=== PATIENT | male | born 1965 | race Caucasian/White ===

== ENCOUNTER 2018-11-28 12:05 | Inpatient (IN) | payer OTHER ==
[~2018-11-28] VITALS: Ht 180.3 cm; Wt 127.0 kg
[2018-11-28] MEDS ORDERED: ONDANSETRON HCL INJ 2MG/ML 2ML 2 MG/ML VIAL IV STA (13:43)
[2018-11-28] MEDS ORDERED: SODIUM CHLORIDE 0.9% 1000ML 1,000 ML IV STA (13:43)
[2018-11-28] MEDS ORDERED: PANTOPRAZOLE 40 MG 10ML VIAL IV STA (13:43)
[2018-11-28] MEDS ORDERED: METRONIDAZOLE 500MG/NS 100ML 100 ML IV SCH (13:45)
[2018-11-28] MEDS ORDERED: PIPER-TAZ 3.375 GM 50 ML IV SCH (13:45)
[2018-11-28 15:06] LABS: BASOPHILS % 0.2 % (0.0-1.0); EOSINOPHILS # (AUTO) 0.2 (0.0-0.4); EOSINOPHILS % 1.4 % (0.0-6.0); HEMATOCRIT 50.6 % (38.2-49.6); HEMOGLOBIN 16.5 g/dL (14.0-18.0); LYMPHOCYTES # (AUTO) 1.7 (1.0-3.2); LYMPHOCYTES % 13.5 % (18.0-39.1); MEAN CORPUSCULAR HGB CONC 32.6 g/dL (31-35); MEAN CORPUSCULAR VOLUME 88.9 fL (81-99); MONOCYTES # (AUTO) 0.7 (0.2-0.8); MONOCYTES % 5.3 % (4.4-11.3); NEUTROPHILS # (AUTO) 10.1 (2.1-6.9); NEUTROPHILS % 79.2 % (38.7-80.0); PLATELET COUNT 263 x10e3/uL (140-360); RED BLOOD COUNT 5.69 x10e6/uL (4.3-5.7); RED CELL DISTRIBUTION WIDTH 13.2 % (11.7-14.4)
[2018-11-28 15:10] LABS: INR 1.04; PROTHROMBIN TIME 14.1 seconds (11.9-14.5)
[2018-11-28 15:11] LABS: PARTIAL THROMBOPLASTIN TIME 34.2 seconds (23.8-35.5)
--- NOTE | 2018-11-28 15:12 | Diagnostic Imaging Report ---
EXAMINATION: CHEST SINGLE (PORTABLE) INDICATION: Abdominal pain. COMPARISON: None FINDINGS: TUBES and LINES: None. LUNGS: Lungs are well inflated. Lungs are clear. There is no evidence of pneumonia or pulmonary edema. PLEURA: No pleural effusion or pneumothorax. HEART AND MEDIASTINUM: The cardiomediastinal silhouette is unremarkable. BONES AND SOFT TISSUES: No acute osseous lesion. Soft tissues are unremarkable. UPPER ABDOMEN: No free air under the diaphragm. IMPRESSION: No acute radiographic abnormality. Signed by: Dr. Senthil Akers MD on 11/28/2018 3:09 PM
[2018-11-28 15:18] LABS: ALANINE AMINOTRANSFERASE 13 IU/L (0-55); ALBUMIN/GLOBULIN RATIO 0.6 (0.8-2.0); ALKALINE PHOSPHATASE 72 IU/L (40-150); ANION GAP 11.6 mmol/L (8-16); BLOOD UREA NITROGEN 17 mg/dL (7-26); BUN/CREATININE RATIO 17 (6-25); CALCIUM 9.7 mg/dL (8.4-10.2); CARBON DIOXIDE 24 mmol/L (22-29); CHLORIDE 107 mmol/L (98-107); CREATINE KINASE 47 IU/L (30-200); CREATININE, SERUM 0.98 mg/dL (0.72-1.25); EST GLOMERULAR FILTRATION RATE > 60 ML/MIN (60-); GLUCOSE 92 mg/dL (74-118); MAGNESIUM 1.9 MG/DL (1.3-2.1); POTASSIUM 3.6 mmol/L (3.5-5.1); SODIUM 139 mmol/L (136-145)
[2018-11-28 15:19] LABS: LIPASE < 4 U/L (8-78)
[2018-11-28] MEDS ORDERED: DIATRIZOATE MEGL/DIATRIZOA SOD 30 ML BTL PO ONE (15:21)
[2018-11-28 16:52] LABS: BILIRUBIN,URINE NEGATIVE (NEGATIVE); CLARITY,URINE SL CLOUDY (CLEAR); COLOR,URINE STRAW (YELLOW); KETONES,URINE 1+ (NEGATIVE); LEUKOCYTE ESTERASE ,URINE TRACE (NEGATIVE); NITRITE,URINE NEGATIVE (NEGATIVE); PROTEIN,URINE DIPSTICK 1+ (NEGATIVE); URINE UROBILINOGEN 0.2 mg/dL (0.2 - 1)
[2018-11-28 17:00] LABS: BACTERIA,URINE MANY /HPF; MUCUS,URINE MODERATE (RARE); RBC,URINE 0-5 /HPF (0-5); WBC,URINE (MAN) 0-5 /HPF (0-5)
--- NOTE | 2018-11-28 17:30 | Diagnostic Imaging Report ---
CT Abdomen And Pelvis with Intravenous Contrast INDICATION: ^ORAL IV, RLQ ABD PAIN ? DIVERTICULITIS VS APPENDICITIS TECHNIQUE: Thin collimation axial images obtained from the diaphragm to the level of the pubic symphysis following the uneventful administration of oral and 100 cc of low osmolar, nonionic intravenous contrast. Dose reduction techniques used: Automated exposure control, adjustment of the mAs and/or kVp according to patient size, standardized low-dose protocol, and/or iterative reconstruction technique. RADIATION DOSE: Total DLP: 909.72 mGy*cm Estimated effective dose: (DLP x 0.015 x size factor) mSv CTDIvol has been reviewed. It is below the limits set by the Radiation Protocol Committee (RPC). COMPARISON: CT abdomen/pelvis performed at [facility] 11/25/2018. ABDOMEN FINDINGS: Lung Bases: Subsegmental atelectasis in the right lower lobe has developed. Subsegmental atelectasis in the left lung base is similar. There is bilateral subpleural fat deposition. The heart is normal in size. Liver: Normal attenuation. No evidence for mass. Gallbladder: Present and appears normal. No biliary ductal dilatation. Pancreas: Mild fatty atrophy without mass or ductal dilatation. Spleen: Normal in size. No evidence of mass.. Adrenal Glands: No evidence for mass. Kidneys: Right: Normal enhancement. No soft tissue mass. No hydronephrosis. Left: Normal enhancement. No soft tissue mass. No hydronephrosis. Lymph Nodes: No enlarged abdominal or periaortic lymph nodes. Aorta: Normal in diameter with scattered calcifications. The celiac artery and SMA are widely patent. PELVIS FINDINGS: Bowel: Stomach: Collapsed and contains enteric contrast. Small Bowel: Contains enteric contrast. Multiple loops of small bowel with mural thickening in the right hemiabdomen have developed. There is no dilatation. The affected small bowel involves the distal ileum including the terminal ileum. No pneumatosis. Large Bowel: There is a small amount of enteric contrast in the cecum. Diverticulosis is redemonstrated without evidence of an inflamed diverticulum. However, there is small amount of ascites on either side of the rectal sigmoid colon. A fluid collection to the right and inferior to the rectosigmoid colon has developed x 3.8 cm. There is mild peripheral enhancement. Along the right peritoneal reflection is a hyperdense focus measuring 3 to 4 mm. This is stable. A small focus of adjacent free air identified on previous CT is no longer visualized. The small droplets of air adjacent to the rectosigmoid colon on the left are no longer visualized. Appendix: Normal appendix. Bladder: Under distended but otherwise normal. Peritoneum/retroperitoneum: There is edema throughout the leaves of the small bowel mesentery in the right hemiabdomen. No evidence of free air in the upper abdomen. Bones: Mild degenerative changes of the spine. Soft tissues: Fat-containing bilateral inguinal hernias, right larger than left. IMPRESSION: 1. New fluid collection adjacent to the rectosigmoid colon is concerning for developing abscess. The pneumoperitoneum associated with the rectosigmoid colon is no longer visualized. An inflamed diverticulum is not identified. 2. New long segment diffuse mural thickening of the ileum, including the terminal ileum, with associated mesenteric edema. Findings are suggestive of infectious enteritis given its rapid development. There are no CT findings of ischemia which is also included in the differential. There is no evidence of bowel obstruction. 3. Normal appendix. Signed by: Dr. Doug Maravilla MD on 11/28/2018 5:26 PM
[2018-11-28] MEDS ORDERED: MORPHINE SULFATE INJ 4 MG/ML INJ 1ML IV PRN (18:15)
[2018-11-28] MEDS ORDERED: ONDANSETRON HCL INJ 2MG/ML 2ML 2 MG/ML VIAL IV PRN (18:15)
--- OUTSIDE RECORDS SUMMARY | 2018-11-28 19:12 | XMS REPORT ---
Author Author [facility] Address Unknown Phone Unavailable Care Team Providers Care Project Development Manager Name Role Phone Morena RODRIGUEZ Unavailable Unavailable Problems This patient has no known problems. Allergies, Adverse Reactions, Alerts This patient has no known allergies or adverse reactions. Medications This patient has no known medications. Results Test Description Test Time Test Comments Text Results Atomic Results Result Comments CT ABDOMEN/PELVIS W 2018-11-28 17:09:00 [facility] [address] [address] Patient Name: SOUTH MONTGOMERY MR #: [id number] : 1965 Age/Sex: 52/M Req #: [id number] Adm Physician: Ordered by: BJ RODRIGUEZ MD Report #: [id number] Location: ER Room/Bed: Procedure: [id number] CT/CT ABDOMEN/PELVIS W Exam Date: Exam Time: REPORT STATUS: Signed CT Abdomen And Pelvis with Intravenous Contrast INDICATION: ORAL IV, RLQ ABD PAIN ? DIVERTICULITIS VS APPENDICITIS TECHNIQUE: Thin collimation axial images obtained from the diaphragm to the level of the pubic symphysis following the uneventful administration of oral and 100 cc of low osmolar, nonionic intravenous contrast. Dose reduction techniques used: Automated exposure control, adjustment of the mAs and/or kVp according to patient size, standardized low-dose protocol, and/or iterative reconstruction technique. RADIATION DOSE: Total DLP: 909.72 mGy*cm Estimated effective dose: (DLP x 0.015 x size factor) mSv CTDIvol has been reviewed. It is below the limits set by the Radiation Protocol Committee (RPC). COMPARISON: CT abdomen/pelvis performed at [facility] 11/25/2018. ABDOMEN FINDINGS: Lung Bases: Subsegmental atelectasis in the right lower lobe has developed. Subsegmental atelectasis in the left lung base is similar. There is bilateral subpleural fat deposition. The heart is normal in size. Liver: Normal attenuation. No evidence for mass. Gallbladder: Present and appears normal. No biliary ductal dilatation. Pancreas: Mild fatty atrophy without mass or ductal dilatation. Spleen: Normal in size. No evidence of mass.. Adrenal Glands: No evidence for mass. Kidneys: Right: Normal enhancement. No soft tissue mass. No hydronephrosis. Left: Normal enhancement. No soft tissue mass. No hydronephrosis. Lymph Nodes: No enlarged abdominal or periaortic lymph nodes. Aorta: Normal in diameter with scattered calcifications. The celiac artery and SMA are widely patent. PELVIS FINDINGS: Bowel: Stomach: Collapsed and contains enteric contrast. Small Bowel: Contains enteric contrast. Multiple loops of small bowel with mural thickening in the right hemiabdomen have developed. There is no dilatation. The affected small bowel involves the distal ileum including the terminal ileum. No pneumatosis. Large Bowel: There is a small amount of enteric contrast in the cecum. Diverticulosis is redemonstrated without evidence of an inflamed diverticulum. However, there is small amount of ascites on either side of the rectal sigmoid colon. A fluid collection to the right and inferior to the rectosigmoid colon has developed x 3.8 cm. There is mild peripheral enhancement. Along the right peritoneal reflection is a hyperdense focus measuring 3 to 4 mm. This is stable. A small focus of adjacent free air identified on previous CT is no longer visualized. The small droplets of air adjacent to the rectosigmoid colon on the left are no longer visualized. Appendix: Normal appendix. Bladder: Under distended but otherwise normal. Peritoneum/retroperitoneum: There is edema throughout the leaves of the small bowel mesentery in the right hemiabdomen. No evidence of free air in the upper abdomen. Bones: Mild degenerative changes of the spine. Soft tissues: Fat-containing bilateral inguinal hernias, right larger than left. IMPRESSION: 1. New fluid collection adjacent to the rectosigmoid colon is concerning for developing abscess. The pneumoperitoneum associated with the rectosigmoid colon is no longer visualized. An inflamed diverticulum is not identified. 2. New long segment diffuse mural thickening of the ileum, including the terminal ileum, with associated mesenteric edema. Findings are suggestive of infectious enteritis given its rapid development. There are no CT findings of ischemia which is also included in the differential. There is no evidence of bowel obstruction. 3. Normal appendix. Signed by: Dr. Kenna Maravilla MD on 11/28/2018 5:26 PM Dictated By: KENNA MARAVILLA MD 25 Transcribed By: RITCHIE on 11/28/181725 COPY TO: BJ RODRIGUEZ MD CHEST SINGLE (PORTABLE) 2018-11-28 15:07:00 [address] [address] Patient Name: SOUTH MONTGOMERY MR #: [id number] : 1965 Age/Sex: 52/M Req #: [id number] Adm Physician: Ordered by: BJ RODRIGUEZ MD Report #: [id number] Location: ER Room/Bed: Procedure: [id number] DX/CHEST SINGLE (PORTABLE) Exam Date: 11/28/18 Exam Time: 1440 REPORT STATUS: Signed EXAMINATION: CHEST SINGLE (PORTABLE) IN DICATION: Abdominal pain. COMPARISON: None FINDINGS: TUBES and LINES: None. LUNGS: Lungs are well inflated. Lungs are clear. There is no evidence of pneumonia or pulmonary edema. PLEURA: No pleural effusion or pneumothorax. HEART AND MEDIASTINUM: The cardiomediastinal silhouette is unremarkable. BONES AND SOFT TISSUES: No acute osseous lesion. Soft tissues are unremarkable. UPPER ABDOMEN: No free air under the diaphragm. IMPRESSION: No acute radiographic abnormality. Signed by: Dr. Kota Jackson MD on 11/28/2018 3:09 PM Dictated By: KOTA JACKSON MD [id number] Transcribed By: RITCHIE on 11/28/18 3024 COPY TO: BJ RODRIGUEZ MD
[2018-11-28] MEDS: SODIUM CHLORIDE 0.9% 1000ML 1,000 ML IV SCH (19:40)
[2018-11-28] MEDS: PIPER-TAZ 3.375 GM / NS 50ML IV SCH (19:42)
[2018-11-28] MEDS ORDERED: SODIUM CHLORIDE 0.9% 50ML 50 ML ONE (20:05)
[2018-11-28] MEDS ORDERED: IOPAMIDOL 370 MG/ML 200 ML INFUS..BTL INJ ONE (20:05)
[2018-11-28 20:15] VITALS: BP 120/73
--- NOTE | 2018-11-28 20:20 | NUR ---
Pt admitted to room 293 via w/c. Pt orient to person, place, time, and situation. Skin warm, dry, and intact. VSS. c/o mild abdominal pain, refuses pain med now. BM x4 loose brown/green stools 11/28/18. Lungs CTA. AROM x4 extremities. Urine jamilah without odor. No acute distress noted. Oriented to room. Call mina within reach. Bed low and locked. Will continue to monitor.
[2018-11-28] MEDS ORDERED: ATORVASTATIN CA10 MG PO (21:06)
[2018-11-28 21:18] VITALS: BP 146/88
[2018-11-28] MEDS: METRONIDAZOLE 500MG/NS 100ML IV SCH (21:21)
[2018-11-29] VITALS (8 sets, daily range): BP systolic 118–131; BP diastolic 59–73
[2018-11-29] MEDS: PIPER-TAZ 3.375 GM / NS 50ML IV SCH ×2 (02:30→08:32)
--- NOTE | 2018-11-29 03:05 | Consultation ---
DATE OF CONSULTATION: 11/28/2018 CHIEF COMPLAINT: Abdominal pain. HISTORY OF ILLNESS: The patient is 52-year-old male with a 3-day history of pain in the right lower quadrant with subjective fevers, no chills. He admits to some diarrhea. The patient states he felt a pop before the pain started. PAST MEDICAL HISTORY: Positive for high cholesterol. SURGICAL HISTORY: Positive for right knee surgery. ALLERGIES: HE HAD NO DRUG ALLERGIES. SOCIAL HABITS: The patient does not smoke or drink. REVIEW OF SYSTEMS: No chest pain, shortness of breath, or cough. PHYSICAL EXAMINATION: VITAL SIGNS: Stable. He is afebrile. He is awake and alert, in mild discomfort. HEENT: Sclera anicteric. NECK: Supple. LUNGS: Clear. HEART: Regular rate and rhythm. ABDOMEN: Soft. Tenderness in his right lower quadrant with some guarding and rebound. EXTREMITIES: No cyanosis, edema. LABORATORY DATA: White cell count is 12. CT scan showed evidence of a 4 cm collection in the rectosigmoid junction. ASSESSMENT: Diverticulitis and diverticular abscess. PLAN: IV hydration, antibiotics. We will follow patient with you. MD YUMIKO Stewart/JOB /[id number]
[2018-11-29] MEDS: METRONIDAZOLE 500MG/NS 100ML IV SCH ×4 (03:30→21:53)
[2018-11-29] MEDS: SODIUM CHLORIDE 0.9% 1000ML 1,000 ML IV SCH (06:00)
[2018-11-29 07:07] LABS: BASOPHILS % 0.4 % (0.0-1.0); EOSINOPHILS # (AUTO) 0.4 (0.0-0.4); EOSINOPHILS % 3.5 % (0.0-6.0); HEMATOCRIT 43.7 % (38.2-49.6); HEMOGLOBIN 14.1 g/dL (14.0-18.0); LYMPHOCYTES # (AUTO) 2.3 (1.0-3.2); LYMPHOCYTES % 22.9 % (18.0-39.1); MEAN CORPUSCULAR HEMOGLOBIN 28.8 pg (28-32); MEAN CORPUSCULAR HGB CONC 32.3 g/dL (31-35); MEAN CORPUSCULAR VOLUME 89.2 fL (81-99); MONOCYTES # (AUTO) 0.6 (0.2-0.8); MONOCYTES % 6.1 % (4.4-11.3); NEUTROPHILS # (AUTO) 6.8 (2.1-6.9); NEUTROPHILS % 66.6 % (38.7-80.0); PLATELET COUNT 258 x10e3/uL (140-360); RED CELL DISTRIBUTION WIDTH 13.1 % (11.7-14.4)
[2018-11-29 07:24] LABS: ALANINE AMINOTRANSFERASE 10 IU/L (0-55); ALBUMIN 2.5 g/dL (3.5-5.0); ALBUMIN/GLOBULIN RATIO 0.7 (0.8-2.0); ALKALINE PHOSPHATASE 46 IU/L (40-150); ANION GAP 10.1 mmol/L (8-16); BLOOD UREA NITROGEN 14 mg/dL (7-26); BUN/CREATININE RATIO 13 (6-25); CALCIUM 8.6 mg/dL (8.4-10.2); CARBON DIOXIDE 23 mmol/L (22-29); CHLORIDE 107 mmol/L (98-107); CREATININE, SERUM 1.04 mg/dL (0.72-1.25); EST GLOMERULAR FILTRATION RATE > 60 ML/MIN (60-); GLUCOSE 87 mg/dL (74-118); POTASSIUM 3.1 mmol/L (3.5-5.1); SODIUM 137 mmol/L (136-145)
--- NOTE | 2018-11-29 07:30 | NUR ---
PT UP IN BED ,DENIES PAIN AT THIS TIME.
[2018-11-29] MEDS ORDERED: POTASSIUM CHLORIDE 20 MEQ TAB CR PO ONE (16:30)
[2018-11-29] MEDS ORDERED: ACETAMINOPHEN 325 MG TAB PO PRN (16:30)
[2018-11-29] MEDS ORDERED: ONDANSETRON HCL INJ 2MG/ML 2ML 2 MG/ML VIAL IV PRN (16:30)
[2018-11-29] MEDS ORDERED: HYDRALAZINE HCL 20 MG/ML VIAL IV PRN (16:30)
[2018-11-29] MEDS: CEFEPIME 1GM/NS 0.9% 50 ML 50 ML IV SCH (16:56)
[2018-11-29] MEDS: FAMOTIDINE 20 MG TAB PO SCH (16:56)
--- NOTE | 2018-11-29 17:48 | NUR ---
PT IN BED ,DENIES PAIN ,NO DISTRESS NTOED,
--- NOTE | 2018-11-29 19:10 | NUR ---
Completed nursing report with morning nurse. Pt alert to name. Lying in bed HOB 30 degrees. Family at bedside. Denies pain at this time. Call mina within reach. Will continue to monitor.
[2018-11-29] MEDS: ATORVASTATIN 10 MG TAB PO SCH (21:53)
--- NOTE | 2018-11-29 22:25 | NUR ---
STOOL AND URINE SPECIMENS TAKEN TO LAB.
[2018-11-29 22:39] LABS: BILIRUBIN,URINE NEGATIVE (NEGATIVE); CLARITY,URINE CLEAR (CLEAR); COLOR,URINE YELLOW (YELLOW); KETONES,URINE TRACE (NEGATIVE); LEUKOCYTE ESTERASE ,URINE NEGATIVE (NEGATIVE); NITRITE,URINE NEGATIVE (NEGATIVE); PROTEIN,URINE DIPSTICK NEGATIVE (NEGATIVE); URINE UROBILINOGEN 0.2 mg/dL (0.2 - 1)
[2018-11-29 22:51] LABS: RBC,URINE 0-5 /HPF (0-5); WBC,URINE (MAN) 0-5 /HPF (0-5)
[2018-11-29 22:52] LABS: EPITHELIAL CELLS,URINE FEW /LPF
--- NOTE | 2018-11-29 22:59 | Consultation ---
DATE OF CONSULTATION: HISTORY OF PRESENT ILLNESS: Mr. Scott is a very pleasant 52-year-old gentleman, who comes in after he had severe pain, started this pain about a week ago. After he ate some salad, he had diarrhea abdominal pain, which was getting progressively worse. but his was complicated by the fact that he had pain. Thus, the patient went to see an outside facility. He was diagnosed with diverticulitis. He was given oral antibiotic and he was told that the pain got worse and to check with his physician and go to emergency room. The patient did not sleep all night from the pain. He did come to the emergency room where he was diagnosed with diverticulitis and abscess. The patient is being admitted. He was seen by Surgery and I was asked to see him. The patient is currently lying in bed. He said he is still having pain in the right lower quadrant. There is no nausea, no vomiting, no diarrhea. REVIEW OF SYSTEMS: At the present time: HEENT: Negative. PULMONARY: Negative. CARDIAC: Negative. : Negative. GI: Negative. JOINTS: Negative. MEDICATIONS: The patient was started on cefepime and metronidazole. LABORATORY DATA: Reviewed. His white count was 12.76, hemoglobin of 16. Sodium 137, potassium 3.1, creatinine 1.04. His CAT scan of the abdomen and the pelvis showed he had a developing abscess. I reviewed the CAT scan. PHYSICAL EXAMINATION: GENERAL: He is currently alert, oriented, does not seem to be in acute distress. VITAL SIGNS: Stable. Currently afebrile. HEENT: He is not icteric. NECK: Supple. CHEST: Clear. HEART: S1, S2. No S3, S4, or murmur. ABDOMEN: Soft. Bowel sounds present. He did have right lower quadrant tenderness. IMPRESSION AND PLAN: Diverticulitis, early abscess. Agree with cefepime. Agree with Flagyl. Continue with the same. We will follow. Discussed with the patient at length the plan of care. IV antibiotic for a couple of weeks. Follow up with the CT until total resolution. We will follow. I am concerned that he was on antibiotics for couple of days without improvement. He does have underlying history of obesity. We will follow. MD YENI Roth/JOB /[id number]
[2018-11-30] VITALS (8 sets, daily range): BP systolic 119–150; BP diastolic 58–85
[2018-11-30] MEDS: METRONIDAZOLE 500MG/NS 100ML IV SCH ×4 (03:02→21:24)
[2018-11-30] MEDS: CEFEPIME 1GM/NS 0.9% 50 ML 50 ML IV SCH ×2 (03:59→16:30)
--- NOTE | 2018-11-30 07:30 | NUR ---
PT IN BED SLEEPING ,NO DISTRESS NTOED.
--- NOTE | 2018-11-30 08:30 | NUR ---
PT C/O HEMORROIDS SPOKE WITH KATHRYN GUILLEN ORDERS WRITTEN
[2018-11-30 08:55] LABS: BASOPHILS # (AUTO) 0.1 (0.0-0.1); BASOPHILS % 0.4 % (0.0-1.0); EOSINOPHILS # (AUTO) 0.2 (0.0-0.4); EOSINOPHILS % 1.6 % (0.0-6.0); HEMATOCRIT 46.6 % (38.2-49.6); HEMOGLOBIN 15.6 g/dL (14.0-18.0); LYMPHOCYTES # (AUTO) 2.9 (1.0-3.2); LYMPHOCYTES % 24.8 % (18.0-39.1); MEAN CORPUSCULAR HEMOGLOBIN 29.3 pg (28-32); MEAN CORPUSCULAR HGB CONC 33.5 g/dL (31-35); MEAN CORPUSCULAR VOLUME 87.6 fL (81-99); MONOCYTES # (AUTO) 0.7 (0.2-0.8); MONOCYTES % 5.7 % (4.4-11.3); NEUTROPHILS # (AUTO) 7.8 (2.1-6.9); PLATELET COUNT 339 x10e3/uL (140-360); RED BLOOD COUNT 5.32 x10e6/uL (4.3-5.7); RED CELL DISTRIBUTION WIDTH 12.7 % (11.7-14.4)
[2018-11-30] MEDS: FAMOTIDINE 20 MG TAB PO SCH ×2 (09:04→16:30)
[2018-11-30 09:17] LABS: ANION GAP 14.3 mmol/L (8-16); BLOOD UREA NITROGEN 11 mg/dL (7-26); BUN/CREATININE RATIO 13 (6-25); CALCIUM 9.6 mg/dL (8.4-10.2); CARBON DIOXIDE 23 mmol/L (22-29); CHLORIDE 104 mmol/L (98-107); CHOL/HDL RATIO 4.2 (3.9-4.7); CHOLESTEROL 105 MD/DL (0-199); CREATININE, SERUM 0.84 mg/dL (0.72-1.25); EST GLOMERULAR FILTRATION RATE > 60 ML/MIN (60-); GLUCOSE 93 mg/dL (74-118); HDL CHOLESTEROL 25 MG/DL (40-60); LDL CHOLESTEROL 64 MG/DL (60-130); MAGNESIUM 1.8 MG/DL (1.3-2.1); POTASSIUM 3.3 mmol/L (3.5-5.1); SODIUM 138 mmol/L (136-145); TRIGLYCERIDES 79 MG/DL (0-149)
[2018-11-30 09:31] LABS: B-TYPE NATRIURETIC PEPTIDE2 20.8 pg/mL (0-100)
[2018-11-30 09:37] LABS: THYROID STIMULATING HORMONE 6.148 uIU/mL (0.350-4.940)
[2018-11-30] MEDS ORDERED: PHENYLEPH/SHARK OIL/MO/PETROL 30 GM OINT RC PRN (09:45)
[2018-11-30] MEDS ORDERED: POTASSIUM CHLORIDE 20 MEQ TAB CR PO ONE (13:00)
--- NOTE | 2018-11-30 17:16 | NUR ---
PT UP IN BED DENIES PAIN,NO DISTRESS NOTED
--- NOTE | 2018-11-30 18:47 | Progress Note ---
DATE: SUBJECTIVE: Mr. Scott is telling me his abdominal pain is better, however, he continued to have abdominal pain. There is no nausea, no vomiting. REVIEW OF SYSTEMS: HEENT: There is no headache, no visual changes, or hearing changes. GI: There is no nausea, no vomiting. There is no abdominal pain. There is no diarrhea. MEDICATIONS: His medication list reviewed again. He is on Flagyl, cefepime, and Synthroid. LABORATORY DATA: His cultures are still pending. His white count is 11.6, hemoglobin 15.6, sodium 138, potassium 3.3, creatinine 0.8. PHYSICAL EXAMINATION: GENERAL: He is currently alert, oriented, does not seem to be in acute distress. VITAL SIGNS: Stable, currently afebrile. There is no fever. Of interest, he is of 71 inch height, 280 pounds with a body mass of 39.1. HEENT: Not icteric. Normocephalic. NECK: Supple. No JVD. No lymphadenopathy or thyromegaly. CHEST: Clear bilaterally. HEART: S1, S2. Soft. IMPRESSION: Diverticulitis with early abscess. Discussed with the patient, I think he needs to be on IV antibiotic for a couple of weeks because of his body size and because there is an early abscess which could rupture, would recommend to obtain CT in 2 weeks to see if there is resolution. We will get a PICC line. Continue with metronidazole, but it has high viability almost 100%. We will reassess in the morning. We will follow. MD YENI Roth/JOB /[id number]
--- NOTE | 2018-11-30 19:15 | NUR ---
Completed nursing report with morning nurse. Pt alert to name. Lying in bed supine HOB 30 degrees. Family at bedside. Denies pain at this time. Call mina within reach. Will continue to monitor.
--- NOTE | 2018-11-30 20:00 | NUR ---
PICC Line RN inserted PICC left upper arm aseptically x1 attempt, Pt tolerated well. Flushed double lumens with 10ml NS.
--- NOTE | 2018-11-30 20:32 | Diagnostic Imaging Report ---
EXAMINATION: CHEST XRAY LINE PLACEMENT INDICATION: CHECK PICC LINE PLACEMENT COMPARISON: Chest x-ray 11/28/2018 FINDINGS: AP view TUBES and LINES: Left upper extremity PICC tip projects over the lower SVC. LUNGS: There is no evidence of pneumonia or pulmonary edema. PLEURA: No pleural effusion or pneumothorax. HEART AND MEDIASTINUM: The cardiomediastinal silhouette is unremarkable. BONES AND SOFT TISSUES: No acute osseous lesion. Soft tissues are unremarkable. UPPER ABDOMEN: No free air under the diaphragm. IMPRESSION: Left upper extremity PICC tip projects over the lower SVC. No pneumothorax. Signed by: DR. Andre Almazan MD on 11/30/2018 8:28 PM
[2018-11-30] MEDS: ATORVASTATIN 10 MG TAB PO SCH (21:24)
[2018-12-01] VITALS (8 sets, daily range): BP systolic 110–157; BP diastolic 59–89
[2018-12-01] MEDS: METRONIDAZOLE 500MG/NS 100ML IV SCH ×4 (03:30→21:26)
[2018-12-01] MEDS: CEFEPIME 1GM/NS 0.9% 50 ML 50 ML IV SCH (05:00)
--- NOTE | 2018-12-01 05:00 | NUR ---
Blood drawn from left upper arm PICC, Pt tolerated well.
[2018-12-01 05:46] LABS: BASOPHILS % 0.4 % (0.0-1.0); EOSINOPHILS # (AUTO) 0.3 (0.0-0.4); EOSINOPHILS % 2.6 % (0.0-6.0); HEMATOCRIT 42.2 % (38.2-49.6); HEMOGLOBIN 14.2 g/dL (14.0-18.0); LYMPHOCYTES # (AUTO) 2.3 (1.0-3.2); LYMPHOCYTES % 23.7 % (18.0-39.1); MEAN CORPUSCULAR HEMOGLOBIN 29.4 pg (28-32); MEAN CORPUSCULAR HGB CONC 33.6 g/dL (31-35); MEAN CORPUSCULAR VOLUME 87.4 fL (81-99); MONOCYTES # (AUTO) 0.7 (0.2-0.8); MONOCYTES % 7.6 % (4.4-11.3); NEUTROPHILS # (AUTO) 6.2 (2.1-6.9); NEUTROPHILS % 65.1 % (38.7-80.0); PLATELET COUNT 273 x10e3/uL (140-360); RED BLOOD COUNT 4.83 x10e6/uL (4.3-5.7); RED CELL DISTRIBUTION WIDTH 12.5 % (11.7-14.4)
[2018-12-01] MEDS: LEVOTHYROXINE SODIUM 25 MCG TABLET PO SCH (06:02)
[2018-12-01 06:03] LABS: ANION GAP 11.1 mmol/L (8-16); BLOOD UREA NITROGEN 9 mg/dL (7-26); BUN/CREATININE RATIO 11 (6-25); CALCIUM 9.1 mg/dL (8.4-10.2); CARBON DIOXIDE 26 mmol/L (22-29); CHLORIDE 104 mmol/L (98-107); EST GLOMERULAR FILTRATION RATE > 60 ML/MIN (60-); GLUCOSE 95 mg/dL (74-118); MAGNESIUM 1.9 MG/DL (1.3-2.1); POTASSIUM 3.1 mmol/L (3.5-5.1); SODIUM 138 mmol/L (136-145)
[2018-12-01] MEDS: FAMOTIDINE 20 MG TAB PO SCH ×2 (08:38→17:42)
[2018-12-01] MEDS ORDERED: POTASSIUM CHLORIDE 20 MEQ TAB CR PO STA (10:24)
[2018-12-01] MEDS ORDERED: POTASSIUM CHLORIDE 20MEQ/100ML 200 ML IV ONE (11:00)
[2018-12-01] MEDS ORDERED: SODIUM CHLORIDE 0.9% 500ML 500 ML ONE (11:40)
[2018-12-01] MEDS ORDERED: LEVOTHYROXINE25 MCG PO (12:00)
[2018-12-01] MEDS ORDERED: CHOLESTYRAMINE L4 GM PO (12:00)
[2018-12-01] MEDS ORDERED: MEROPENEM 1GRAM 1 GM in SODIUM CHLORIDE 0.9% 100 ML 100 ML IV ONE (12:00)
[2018-12-01] MEDS ORDERED: Lactobacillus Acidophilus PO (12:00)
[2018-12-01] MEDS ORDERED: TYLENOL WITH C1 EACH PO (12:06)
[2018-12-01] MEDS ORDERED: MEROPENEM 1GM 100 ML IV ONE ×2 (12:15→18:00)
[2018-12-01] MEDS: LACTOBACILLUS ACIDOPHILUS CAPSULE PO SCH ×2 (12:32→17:42)
[2018-12-01] MEDS: CHOLESTYRAMINE 4 GM PACKET PO SCH ×2 (12:32→17:42)
[2018-12-01] MEDS ORDERED: MEROPENEM 1GM 100 ML IV SCH ×2 (14:30→16:30)
--- NOTE | 2018-12-01 16:35 | NUR ---
DC PLAN: ORDER RECEIVED FOR HOME HEALTH W SN TO EVAL AND TREAT, ARRANGE IV ABX PER ID. PT WILL F/U W DR. ENGLAND'S OFFICE FOR HOME IV ABX AND PICC LINE REMOVAL. NO DC NEEDS PER CM AT THIS TIME.
--- NOTE | 2018-12-01 18:16 | Diagnostic Imaging Report ---
EXAM: CT Abdomen and Pelvis WITH contrast INDICATION: Follow-up intra-abdominal abscess COMPARISON: 11/28/2018 TECHNIQUE: Abdomen and pelvis were scanned utilizing a multidetector helical scanner from the lung base to the pubic symphysis after administration of IV contrast. Coronal and sagittal reformations were obtained. Routine protocol was performed. Scan was performed when during portal venous phase. IV CONTRAST: 100 mL of Isovue-370 ORAL CONTRAST: Water COMPLICATIONS: None RADIATION DOSE: Total DLP: 950.67 mGy*cm Estimated effective dose: (DLP x 0.015 x size factor) mSv CTDIvol has been reviewed. It is below the limits set by the Radiation Protocol Committee (RPC). Dose modulation, iterative reconstruction, and/or weight based adjustment of the mA/kV was utilized to reduce the radiation dose to as low as reasonably achievable. FINDINGS: LINES and TUBES: None. LOWER THORAX: Unremarkable Liver: Normal attenuation. No evidence for mass. Gallbladder: Present and appears normal. No biliary ductal dilatation. Pancreas: Mild fatty atrophy without mass or ductal dilatation. Spleen: Normal in size. No evidence of mass.. Adrenal Glands: No evidence for mass. Kidneys: Right: Normal enhancement. No soft tissue mass. No hydronephrosis. Left: Normal enhancement. No soft tissue mass. No hydronephrosis. Lymph Nodes: No enlarged abdominal or periaortic lymph nodes. Aorta: Normal in diameter with scattered calcifications. The celiac artery and SMA are widely patent. PELVIS FINDINGS: Bowel: Stomach: Collapsed otherwise unremarkable. Small Bowel: Multiple loops of small bowel with mural thickening in the right hemiabdomen centrally unchanged. Diverticulosis is redemonstrated without evidence of an inflamed diverticulum. However, there is small amount of ascites on either side of the rectal sigmoid colon. A fluid collection to the right and inferior to the rectosigmoid colon is essentially unchanged in size. There is mild peripheral enhancement. Along the right peritoneal reflection is a hyperdense focus measuring 3 to 4 mm. This is stable. A small focus of adjacent free air identified on previous CT is no longer visualized. The small droplets of air adjacent to the rectosigmoid colon on the left are no longer visualized. Appendix: Normal appendix. Bladder: Under distended but otherwise normal. Peritoneum/retroperitoneum: There is edema throughout the leaves of the small bowel mesentery in the right hemiabdomen. No evidence of free air in the upper abdomen. Bones: Mild degenerative changes of the spine. Soft tissues: Fat-containing bilateral inguinal hernias, right larger than left. IMPRESSION: 1. Unchanged fluid collection adjacent to the rectosigmoid colon is concerning for developing abscess. The pneumoperitoneum associated with the rectosigmoid colon is no longer visualized. An inflamed diverticulum is not identified. 2. Unchanged long segment diffuse mural thickening of the ileum, including the terminal ileum, with associated mesenteric edema. Findings are suggestive of infectious enteritis given its rapid development. There are no CT findings of ischemia which is also included in the differential. There is no evidence of bowel obstruction. 3. Normal appendix. Signed by: Dr. Da Jain M.D. on 12/01/2018 6:12 PM
--- NOTE | 2018-12-01 19:31 | NUR ---
PATIENT IS IN STABLE CONDITION WITH NO S/S OF RESPIRATORY DISTRESS. NO PAIN VOICED. IV POTASSIUM INFUSING. FAMILY MEMBERS PRESENT IN ROOM. CALL LIGHT IS WITHIN REACH OF PATIENT, PATIENT INSTRUCTED TO CALL FOR ASSISTANCE NEEDED. BEDSIDE REPORT GIVEN TO ONCOMING NURSE.
--- NOTE | 2018-12-01 20:30 | NUR ---
RECEIVED PT IN BED AOX3 .RESPIRATIONS ARE EVEN AD UNLABORED .CALL LIGHT WITH IN REACH FAMILY AT THE BEDSIDE .CONTINUE TO MONITOR
[2018-12-01] MEDS ORDERED: IOPAMIDOL 370 MG/ML 200 ML INFUS..BTL INJ ONE (20:34)
[2018-12-01] MEDS ORDERED: SODIUM CHLORIDE 0.9% 50ML 50 ML ONE (20:34)
[2018-12-01] MEDS: ATORVASTATIN 10 MG TAB PO SCH (21:26)
[2018-12-02] VITALS: BP 128/63
[2018-12-02] MEDS: MEROPENEM 1GM 100 ML IV SCH ×3 (02:51→17:07)
[2018-12-02] MEDS: METRONIDAZOLE 500MG/NS 100ML IV SCH ×3 (02:51→15:13)
[2018-12-02 04:00] VITALS: BP 128/66
[2018-12-02] MEDS: LEVOTHYROXINE SODIUM 25 MCG TABLET PO SCH (05:49)
--- NOTE | 2018-12-02 06:07 | NUR ---
DR LOVETT HAS SEEN THE PT .PT RESTING DENIES PAIN .CALL LIGHT WITH IN REACH .CONTINUE TO MONITOR
[2018-12-02 06:16] LABS: BASOPHILS # (AUTO) 0.1 (0.0-0.1); BASOPHILS % 0.6 % (0.0-1.0); EOSINOPHILS # (AUTO) 0.3 (0.0-0.4); EOSINOPHILS % 2.8 % (0.0-6.0); HEMATOCRIT 42.7 % (38.2-49.6); HEMOGLOBIN 14.2 g/dL (14.0-18.0); LYMPHOCYTES # (AUTO) 2.5 (1.0-3.2); LYMPHOCYTES % 25.1 % (18.0-39.1); MEAN CORPUSCULAR HGB CONC 33.3 g/dL (31-35); MEAN CORPUSCULAR VOLUME 87.1 fL (81-99); MONOCYTES # (AUTO) 0.7 (0.2-0.8); MONOCYTES % 6.9 % (4.4-11.3); NEUTROPHILS # (AUTO) 6.4 (2.1-6.9); NEUTROPHILS % 64.1 % (38.7-80.0); PLATELET COUNT 292 x10e3/uL (140-360); RED CELL DISTRIBUTION WIDTH 12.6 % (11.7-14.4)
[2018-12-02 06:41] LABS: ANION GAP 11.2 mmol/L (8-16); BLOOD UREA NITROGEN 9 mg/dL (7-26); BUN/CREATININE RATIO 10 (6-25); CALCIUM 8.9 mg/dL (8.4-10.2); CARBON DIOXIDE 26 mmol/L (22-29); CHLORIDE 103 mmol/L (98-107); CREATININE, SERUM 0.86 mg/dL (0.72-1.25); EST GLOMERULAR FILTRATION RATE > 60 ML/MIN (60-); GLUCOSE 94 mg/dL (74-118); POTASSIUM 3.2 mmol/L (3.5-5.1); SODIUM 137 mmol/L (136-145)
--- NOTE | 2018-12-02 07:10 | NUR ---
PATIENT IS IN STABLE CONDITION WITH NO S/S OF RESPIRATORY DISTRESS. PATIENT DENIES ANY PAIN AT THIS TIME. PRESENT IN ROOM. CALL LIGHT IS WITHIN REACH OF PATIENT; PATIENT INSTRUCTED TO CALL FOR ASSISTANCE NEEDED.
--- NOTE | 2018-12-02 07:12 | NUR ---
REPORT GIVEN TO THE ON COMING NURSE
[2018-12-02 08:00] VITALS: BP 131/65
[2018-12-02 08:17] VITALS: BP 131/65
[2018-12-02] MEDS: DICYCLOMINE HCL 20 MG TAB PO SCH ×3 (08:22→17:07)
[2018-12-02] MEDS: FAMOTIDINE 20 MG TAB PO SCH ×2 (08:22→17:07)
[2018-12-02] MEDS: LACTOBACILLUS ACIDOPHILUS CAPSULE PO SCH ×2 (08:22→17:07)
[2018-12-02] MEDS: CHOLESTYRAMINE 4 GM PACKET PO SCH ×2 (08:23→17:00)
[2018-12-02] MEDS ORDERED: POTASSIUM CHLORIDE 20MEQ/100ML 200 ML IV ONE (09:30)
[2018-12-02] MEDS ORDERED: SODIUM CHLORIDE 0.9% 500ML 500 ML ONE (09:40)
--- NOTE | 2018-12-02 11:50 | NUR ---
CALL PLACED OUT TO DR. LOVETT REGARDING CLEARANCE- AWAITING CALLBACK.
[2018-12-02 12:35] VITALS: BP 127/64
--- NOTE | 2018-12-02 14:47 | NUR ---
RECEIVED CALLBACK FROM DR. BAIRD REGARDING PATIENT'S REQUEST FOR MEDICATION TO HELP WITH A BM- NEW ORDER RECEIVED. Addendum: 12/02/18 at 1454 by Erica Whitley RN ENTRY ERROR
--- NOTE | 2018-12-02 14:54 | NUR ---
RECEIVED CALL FROM DR. LOVETT RECEIVED CLEARANCE FOR D/C. DR. LOVETT STATED TO HAVE PATIENT CALL THE OFFICE TO SET UP AN APPOINTMENT IN 2-3 WEEKS AND PLAN FOR A COLONOSCOPY POST IV ANTIBIOTICS.
[2018-12-02 16:50] VITALS: BP 129/76
--- NOTE | 2018-12-02 18:13 | NUR ---
PATIENT DISCHARGE HOME- PATIENT OFF THE UNIT AT 1803 PER WHEELCHAIR ACCOMPANIED BY PCT TO THE FRONT LOBBY. PATIENT IS IN STABLE CONDITION WITH NO S/S OF RESPIRATORY DISTRESS. NO PAIN VOICED. PICC LINE IS SECURE AND DRESSING IS INTACT- SWAB CAPS PRESENT ON THE ENDS OF THE DOUBLE LUMENS. PICC LINE DRESSING CHANGE/EDUCATION TEACHING WAS GIVEN TO THE PATIENT AND HIS . PATIENT IS AWARE TO FOLLOW UP WITH DR. ENGLAND TOMORROW, 12/03/[address] ENGLAND'S OFFICE. DISCHARGE TEACHING, INSTRUCTIONS, AND MEDICATIONS GIVEN TO THE PATIENT. ALL PERSONAL ITEMS WERE TAKEN WITH THE PATIENT AND HIS .
--- NOTE | 2018-12-03 01:59 | Discharge Summary ---
ADMISSION DIAGNOSES: Diverticulitis with abscess, failed outpatient treatment; hyperlipidemia; urinary tract infection; hypokalemia; obesity. DISCHARGE DIAGNOSES: Diverticulitis with abscess, failed outpatient treatment; hyperlipidemia; urinary tract infection; hypokalemia; obesity; hypothyroidism. Rule out C difficile. Rule out urinary tract infection. Rule out diverticular abscess. HISTORY: Hyperlipidemia, hep C. SURGICAL HISTORY: Right knee surgery x2, right samuels debridement. FAMILY HISTORY: The patient's mom, dad, sister, aunts, and uncles have cancer. The patient's mom had a stroke. SOCIAL HISTORY: Noncontributory. HOSPITAL COURSE: A 52-year-old male complains of right pelvic pain with diarrhea that began Saturday. The pain is a constant sharp ache. He went to Urgent Care and got 2 antibiotics, Flagyl and an unknown, which helped for 1 day. The pain then returned on . He complains of 4-5 watery bowel movements a day. He denies melena. Pain is worse with each bowel movement. On admission, the patient was started on Flagyl and cefepime. GI and Infectious Disease were consulted. Chest x-ray was negative. CT of the abdomen showed new fluid collection adjacent to the rectosigmoid colon, concerning for abscess; new long segment diffuse mural thickening of the ileum including the terminal ileum with associated mesenteric edema. The patient had a left upper extremity PICC placed. Repeat CT of the abdomen prior to discharge shows unchanged fluid collection adjacent to the rectosigmoid colon, concerning for developing abscess. The patient was cleared per GI and will follow up for a colonoscopy once diverticulitis has improved. The patient will follow up in Infectious Disease office for 2 more weeks of antibiotics, Merrem q.8. He will also discharge home with Tylenol No.3, Questran, probiotics, and levothyroxine. The patient and understand discharge instructions and agrees to plan. The patient is tolerating a regular diet and the bowel movements are soft. Vital signs stable, patient afebrile. Dictated by Ellie Mcintosh NP MD MANJINDER Grace/JOB /[id number]
== END 2018-12-02 18:03 | disposition home or self-care (01) | DRG 392 ==
LOC: ER 12:05 → ERHOLD 18:21 → MED/SURG3 20:22
PROVIDERS: ADMIT Internal Medicine; ATTEND Internal Medicine
PROC: 02HV33Z Insertion of Infusion Device into Superior Vena Cava, Percutaneous Approach (ICD-10-PCS; principal; 2018-11-30)
DX: K57.80 Diverticulitis of intestine, part unspecified, with perforation and abscess without bleeding (principal); N39.0 Urinary tract infection, site not specified; E87.6 Hypokalemia
CPT/HCPCS: 36415; 36569; 71045; 74177; 74470; 80048; 80053; 80061; 81001; 82550; 82553; 83036; 83690; 83735; 83880; 84439; 84443; 84484; 85025; 85610; 85730; 87086; 87493; 99284; J0692; J2270; J2405; J2543; J3480; J7030; J7040; Q9967

== ENCOUNTER → 2018-12-25 | Outpatient (CLI) | payer OTHER ==
[~2018-12-25] MED LIST: ATORVASTATIN CA10 MG PO; CHOLESTYRAMINE L4 GM PO; DIATRIZOATE MEGL/DIATRIZOA SOD 30 ML BTL PO ONE; IOPAMIDOL 370 MG/ML 200 ML INFUS..BTL INJ ONE; LEVOTHYROXINE25 MCG PO; Lactobacillus Acidophilus PO; SODIUM CHLORIDE 0.9% 50ML 50 ML ONE; TYLENOL WITH C1 EACH PO
[2018-12-25 11:27] LABS: BLOOD UREA NITROGEN 20 mg/dL (7-26); BUN/CREATININE RATIO 20 (6-25); EST GLOMERULAR FILTRATION RATE > 60 ML/MIN (60-)
--- NOTE | 2018-12-25 14:16 | Diagnostic Imaging Report ---
EXAM: CT Abdomen and Pelvis WITH contrast INDICATION: Diverticulitis. COMPARISON: CT Abdomen/Pelvis with contrast 12/01/2018. TECHNIQUE: Abdomen and pelvis were scanned utilizing a multidetector helical scanner from the lung base to the pubic symphysis after administration of IV contrast. Coronal and sagittal reformations were obtained. Routine protocol was performed. Scan was performed when during portal venous phase. IV CONTRAST: 100 cc of Isovue 370. ORAL CONTRAST: Gastrografin COMPLICATIONS: None RADIATION DOSE: Total DLP: 942 mGy*cm Dose modulation, iterative reconstruction, and/or weight based adjustment of the mA/kV was utilized to reduce the radiation dose to as low as reasonably achievable. FINDINGS: LINES and TUBES: None. LOWER THORAX: Unremarkable HEPATOBILIARY: No evidence of focal lesion. No biliary ductal dilation. GALLBLADDER: No radio-opaque stones or sludge. No wall thickening. SPLEEN: No splenomegaly. PANCREAS: Mild fatty atrophy. No focal masses or ductal dilatation. ADRENALS: No adrenal nodules KIDNEYS/URETERS: Kidneys enhance symmetrically. No evidence of hydronephrosis, solid mass, or stone. GI TRACT: Interval resolution of wall thickening involving the distal ileum. Colonic diverticulosis, most pronounced in the sigmoid colon, without CT evidence of diverticulitis. No evidence of wall thickening or distension. Appendix is normal. PELVIC ORGANS/BLADDER: Unremarkable. LYMPH NODES: No lymphadenopathy. VESSELS: Scattered atherosclerotic changes in the abdominal aorta. PERITONEUM / RETROPERITONEUM: No free air or fluid. Interval resolution of pelvic fluid collection adjacent to the rectosigmoid colon. BONES AND SOFT TISSUES: No acute osseous abnormality. No suspicious lytic or blastic lesions. Degenerative changes of the spine. Fat-containing bilateral inguinal hernias, right greater than left. CONCLUSION: Interval resolution of fluid collection adjacent to the rectosigmoid colon. Sigmoid colonic diverticulosis without CT evidence of diverticulitis. Interval resolution of inflammatory changes involving the distal ileum. Signed by: Dr. Senthil Akers MD on 12/25/2018 2:13 PM
== END ==
LOC: CT 10:22
PROVIDERS: ATTEND Internal Medicine Infectious Disease
DX: K57.00 Diverticulitis of small intestine with perforation and abscess without bleeding (principal)
CPT/HCPCS: 36415; 74177; 82565; 84520; Q9967

== ENCOUNTER 2019-07-11 13:52 | Inpatient (IN) | payer OTHER ==
[~2019-07-11] VITALS: Ht 180.3 cm; Wt 127.0 kg
[~2019-07-11 13:52] MED LIST changes: +ALEVE220 M1 PO; -DIATRIZOATE MEGL/DIATRIZOA SOD 30 ML BTL PO ONE; +IBUPROFEN400 MG PO; -IOPAMIDOL 370 MG/ML 200 ML INFUS..BTL INJ ONE; -SODIUM CHLORIDE 0.9% 50ML 50 ML ONE
[2019-07-11] MEDS ORDERED: SODIUM CHLORIDE 0.9% 1000ML 1,000 ML IV STA (14:12)
[2019-07-11] MEDS ORDERED: ASPIRIN 81 MG CHEW TAB PO ONE (14:15)
[2019-07-11] MEDS ORDERED: ONDANSETRON HCL INJ 2MG/ML 2ML 2 MG/ML VIAL IV ONE (15:00)
[2019-07-11] MEDS ORDERED: MORPHINE SULFATE INJ 4 MG/ML INJ 1ML IV ONE ×2 (15:00→17:00)
[2019-07-11] MEDS ORDERED: PANTOPRAZOLE 40 MG 10ML VIAL IV ONE (15:00)
[2019-07-11 15:02] LABS: BASOPHILS # (AUTO) 0.1 (0.0-0.1); BASOPHILS % 0.5 % (0.0-1.0); EOSINOPHILS # (AUTO) 0.2 (0.0-0.4); EOSINOPHILS % 1.1 % (0.0-6.0); HEMATOCRIT 50.5 % (38.2-49.6); HEMOGLOBIN 16.9 g/dL (14.0-18.0); LYMPHOCYTES # (AUTO) 2.6 (1.0-3.2); LYMPHOCYTES % 17.1 % (18.0-39.1); MEAN CORPUSCULAR HEMOGLOBIN 29.4 pg (28-32); MEAN CORPUSCULAR HGB CONC 33.5 g/dL (31-35); MONOCYTES % 6.4 % (4.4-11.3); NEUTROPHILS # (AUTO) 11.3 (2.1-6.9); NEUTROPHILS % 74.5 % (38.7-80.0); PLATELET COUNT 285 x10e3/uL (140-360); RED BLOOD COUNT 5.74 x10e6/uL (4.3-5.7); RED CELL DISTRIBUTION WIDTH 12.6 % (11.7-14.4)
[2019-07-11 15:37] LABS: B-TYPE NATRIURETIC PEPTIDE2 22.9 pg/mL (0-100)
[2019-07-11 15:50] LABS: ALANINE AMINOTRANSFERASE 23 IU/L (0-55); ALBUMIN/GLOBULIN RATIO 0.9 (0.8-2.0); ALKALINE PHOSPHATASE 75 IU/L (40-150); ANION GAP 14.7 mmol/L (8-16); BLOOD UREA NITROGEN 14 mg/dL (7-26); BUN/CREATININE RATIO 13 (6-25); CALCIUM 10.1 mg/dL (8.4-10.2); CARBON DIOXIDE 26 mmol/L (22-29); CHLORIDE 102 mmol/L (98-107); CREATINE KINASE 152 IU/L (30-200); CREATININE, SERUM 1.08 mg/dL (0.72-1.25); EST GLOMERULAR FILTRATION RATE > 60 ML/MIN (60-); GLUCOSE 113 mg/dL (74-118); LIPASE 9 U/L (8-78); POTASSIUM 3.7 mmol/L (3.5-5.1); SODIUM 139 mmol/L (136-145)
[2019-07-11] MEDS ORDERED: DIATRIZOATE MEGL/DIATRIZOA SOD 30 ML BTL PO ONE (16:43)
[2019-07-11] MEDS ORDERED: SODIUM CHLORIDE 0.9% 50ML 50 ML ONE (18:09)
[2019-07-11] MEDS ORDERED: IOPAMIDOL 370 MG/ML 200 ML INFUS..BTL INJ ONE (18:10)
--- NOTE | 2019-07-11 18:55 | Diagnostic Imaging Report ---
EXAM: CT Abdomen and Pelvis WITH contrast INDICATION: ^abd pain ^[id number] ^[id number] COMPARISON: CT dated 12/25/2018 TECHNIQUE: Abdomen and pelvis were scanned utilizing a multidetector helical scanner from the lung base to the pubic symphysis after administration of IV contrast. Coronal and sagittal reformations were obtained. Dose modulation, iterative reconstruction, and/or weight based adjustment of the mA/kV was utilized to reduce the radiation dose to as low as reasonably achievable. Routine protocol was performed. Scan was performed when during portal venous phase. IV CONTRAST: 100 mL of Isovue-370 ORAL CONTRAST: Gastroview COMPLICATIONS: None RADIATION DOSE: Total DLP: 885.23 mGy*cm Estimated effective dose: (DLP x 0.015 x size factor) mSv CTDIvol has been reviewed. It is below the limits set by the Radiation Protocol Committee (RPC). FINDINGS: LINES and TUBES: None. LOWER THORAX: Dependent atelectasis. HEPATOBILIARY: No focal hepatic lesions. No biliary ductal dilation. GALLBLADDER: No radio-opaque stones or sludge. No wall thickening. SPLEEN: No splenomegaly. PANCREAS: No focal masses or ductal dilatation. Mild fat stranding around the pancreatic head. ADRENALS: No adrenal nodules KIDNEYS/URETERS: Kidneys enhance symmetrically. No hydronephrosis. No cystic or solid mass lesions. No stones. GI TRACT: No abnormal distention, wall thickening, or evidence of bowel obstruction. There are diverticula within the colon without evidence of diverticulitis. Appendix is normal. PELVIC ORGANS/BLADDER: Unremarkable. LYMPH NODES: No lymphadenopathy. VESSELS: Unremarkable. PERITONEUM / RETROPERITONEUM: No free air or fluid. BONES: Unremarkable. SOFT TISSUES: Small fat-containing bilateral inguinal hernia. IMPRESSION: 1. Mild fat stranding around the pancreatic head, suspicious for focal pancreatitis. Otherwise, no acute inflammatory process in the abdomen/pelvis. 2. Colonic diverticulosis without evidence of diverticulitis. Signed by: Dr. Xavi Paredes MD on 07/11/2019 6:51 PM
[2019-07-11] MEDS ORDERED: PIPER-TAZ 3.375 GM 50 ML IV SCH (19:15)
[2019-07-11] MEDS ORDERED: PIPER-TAZ 3.375 GM 50 ML IV ONE (19:30)
[2019-07-11] MEDS: ONDANSETRON HCL INJ 2MG/ML 2ML 2 MG/ML VIAL IV PRN (20:00)
[2019-07-11] MEDS: MORPHINE SULFATE 2 MG/ML SYR 1ML IV PRN (20:00)
[2019-07-11] MEDS: SODIUM CHLORIDE 0.9% 1000ML 1,000 ML IV SCH (20:12)
[2019-07-11 20:40] VITALS: BP 146/67
--- NOTE | 2019-07-11 20:40 | NUR ---
PATIENT ARRIVED TO THE UNIT VIA STRETCHER ACCOMPANIED BY HIS . RECEIVED REPORT FROM ASAEL JAMISON NURSE. CALL LIGHT AND BELONGINGS WITHIN REACH. PATIENT IS A&OX3
[2019-07-11 21:14] VITALS: BP 146/67
[2019-07-12] VITALS (10 sets, daily range): BP systolic 128–159; BP diastolic 62–84
[2019-07-12] MEDS: ATORVASTATIN 10 MG TAB PO SCH
[2019-07-12] MEDS: ONDANSETRON HCL INJ 2MG/ML 2ML 2 MG/ML VIAL IV PRN ×3 (00:44→14:31)
[2019-07-12] MEDS: MORPHINE SULFATE 2 MG/ML SYR 1ML IV PRN ×3 (00:44→14:31)
[2019-07-12] MEDS ORDERED: INFLUENZA VIRUS VAC SPLIT INJ 0.5 ML SYR IM SCH (01:12)
[2019-07-12] MEDS ORDERED: PNEUMOCOCCAL VACCINE POLYVALENT 23 MCG/0.5 ML VIAL IM SCH (01:12)
[2019-07-12] MEDS: SODIUM CHLORIDE 0.9% 1000ML 1,000 ML IV SCH ×3 (04:02→18:51)
--- NOTE | 2019-07-12 06:51 | NUR ---
GAVE REPORT TO ONCOMING NURSE. PATIENT IN BED. AT BEDSIDE. CALL LIGHT WITHIN REACH.
[2019-07-12] MEDS ORDERED: ACETAMINOPHEN 325 MG TAB PO PRN (07:00)
[2019-07-12] MEDS ORDERED: HYDRALAZINE HCL 20 MG/ML VIAL IV PRN (07:00)
--- NOTE | 2019-07-12 07:21 | NUR ---
MD Horace Fraser office notified regarding consult for pt.
[2019-07-12] MEDS: PANTOPRAZOLE 40 MG 10ML VIAL IV SCH ×2 (07:53→09:29)
[2019-07-12] MEDS: KETOROLAC TROMETHAMINE 30 MG/ML VIAL IM PRN ×2 (10:25→18:51)
--- NOTE | 2019-07-12 19:02 | NUR ---
RECEIVED REPORT FROM PREVIOUS NURSE. CALL LIGHT WITHIN REACH. AT BEDSIDE. PATIENT IN BED.
[2019-07-13] VITALS: BP 150/78
[2019-07-13] MEDS: ATORVASTATIN 10 MG TAB PO SCH
[2019-07-13] MEDS: KETOROLAC TROMETHAMINE 30 MG/ML VIAL IM PRN (02:58)
[2019-07-13 03:11] LABS: BASOPHILS % 0.5 % (0.0-1.0); EOSINOPHILS # (AUTO) 0.3 (0.0-0.4); EOSINOPHILS % 3.6 % (0.0-6.0); HEMATOCRIT 43.4 % (38.2-49.6); HEMOGLOBIN 14.4 g/dL (14.0-18.0); LYMPHOCYTES # (AUTO) 2.5 (1.0-3.2); LYMPHOCYTES % 32.5 % (18.0-39.1); MEAN CORPUSCULAR HEMOGLOBIN 29.6 pg (28-32); MEAN CORPUSCULAR HGB CONC 33.2 g/dL (31-35); MEAN CORPUSCULAR VOLUME 89.1 fL (81-99); MONOCYTES # (AUTO) 0.6 (0.2-0.8); MONOCYTES % 7.5 % (4.4-11.3); NEUTROPHILS # (AUTO) 4.3 (2.1-6.9); NEUTROPHILS % 55.6 % (38.7-80.0); PLATELET COUNT 203 x10e3/uL (140-360); RED BLOOD COUNT 4.87 x10e6/uL (4.3-5.7); RED CELL DISTRIBUTION WIDTH 12.7 % (11.7-14.4)
[2019-07-13] MEDS: SODIUM CHLORIDE 0.9% 1000ML 1,000 ML IV SCH ×2 (03:15→10:20)
[2019-07-13 03:33] LABS: ANION GAP 11.8 mmol/L (8-16); BLOOD UREA NITROGEN 11 mg/dL (7-26); BUN/CREATININE RATIO 12 (6-25); CALCIUM 8.9 mg/dL (8.4-10.2); CARBON DIOXIDE 25 mmol/L (22-29); CHLORIDE 103 mmol/L (98-107); CHOL/HDL RATIO 4.1 (3.9-4.7); CHOLESTEROL 130 MD/DL (0-199); CREATININE, SERUM 0.94 mg/dL (0.72-1.25); EST GLOMERULAR FILTRATION RATE > 60 ML/MIN (60-); GLUCOSE 75 mg/dL (74-118); HDL CHOLESTEROL 32 MG/DL (40-60); LDL CHOLESTEROL 82 MG/DL (60-130); LIPASE 31 U/L (8-78); POTASSIUM 3.8 mmol/L (3.5-5.1); SODIUM 136 mmol/L (136-145); TRIGLYCERIDES 82 MG/DL (0-149)
[2019-07-13 04:00] VITALS: BP 105/66
--- NOTE | 2019-07-13 06:53 | NUR ---
Received patient lying in bed with eyes closed. Respiration even and unlabored without SOB. Call light in reach.
[2019-07-13] MEDS ORDERED: PANTOPRAZOLE SO40 MG PO (07:00)
[2019-07-13] MEDS ORDERED: ZOFRAN4 MG PO (07:00)
[2019-07-13] MEDS ORDERED: TYLENOL WITH C1 EACH PO (07:00)
--- NOTE | 2019-07-13 07:17 | NUR ---
GAVE REPORT TO ONCOMING NURSE. CALL LIGHT WITHIN REACH. PATIENT IN BED. AT BEDSIDE
[2019-07-13 07:30] VITALS: BP 141/77
[2019-07-13] MEDS: PANTOPRAZOLE 40 MG 10ML VIAL IV SCH (08:08)
[2019-07-13 09:02] VITALS: BP 141/77
[2019-07-13 12:00] VITALS: BP 143/92
--- NOTE | 2019-07-13 15:14 | NUR ---
PIV to left AC discontinued. Catheter tip intact, no bleeding noted. Patient is to D/C to home.
--- NOTE | 2019-07-13 15:16 | NUR ---
patient is transported via wheelchair to private vehicle. All personal belongings are taken by spouse.
--- NOTE | 2019-07-13 16:47 | NUR ---
Nutrition Education Learner(s): pt, , family Time spent: 5 minutes Barriers: none Cultural/Language Modifications: No cultural/language modifications noted. Readiness: acceptance Method: explanation, handout Topics: low fat diet - pancreatitis Understanding/Compliance: Pt verbalized understanding Signed: Casandra Rosales RD, LD
--- NOTE | 2019-07-14 13:04 | Discharge Summary ---
ADMISSION DIAGNOSES: Pancreatitis, hyperlipidemia, obesity with a BMI of 39.1. DISCHARGE DIAGNOSES: Pancreatitis, hyperlipidemia, obesity with a BMI of 39.1. HISTORY: Hyperlipidemia, hep C, diverticulitis with abscess. SURGICAL HISTORY: Right knee surgery x2, and a right samuels debridement. FAMILY HISTORY: The patient's mom, dad, sister, aunts and uncles have cancer. The patient's mom had a stroke. SOCIAL HISTORY: Noncontributory. HOSPITAL COURSE: A 53-year-old male admits with constant dull epigastric pain that began 3 days ago. He has associated nausea, but denies vomiting and fever. He had a colonoscopy with Dr. Fraser two weeks prior, which was normal. On admission, the patient's lipase was within normal limits, but the CT of the abdomen and pelvis showed mild fat stranding around the pancreatic head suspicious for pancreatitis. No other acute process in the abdomen or pelvis. Colonic diverticulosis without evidence of diverticulitis. After a day of being n.p.o. and given fluids, the patient is feeling better. He is now able to tolerate a regular diet and we will discharge home with p.r.n. prescriptions for Zofran and Tylenol No. 3 and daily Protonix. The patient and understand discharge instructions and agreed to plan. Vital signs are stable. The patient is afebrile. Dictated by Ellie Mcintosh NP MD MANJINDER Grace/MODL /[id number]
== END 2019-07-13 15:16 | disposition home or self-care (01) | DRG 440 ==
LOC: ER 13:52 → ERHOLD 19:34 → MED/SURG 21:03 → OBSVTOIN 07-12 06:58
PROVIDERS: ADMIT Internal Medicine; ATTEND Internal Medicine
DX: K85.90 Acute pancreatitis without necrosis or infection, unspecified (principal); E66.9 Obesity, unspecified; Z68.38 Body mass index [BMI] 38.0-38.9, adult; E78.5 Hyperlipidemia, unspecified; K57.90 Diverticulosis of intestine, part unspecified, without perforation or abscess without bleeding
CPT/HCPCS: 36415; 74177; 80048; 80053; 80061; 82550; 82553; 83036; 83605; 83690; 83880; 84478; 84484; 85025; 93005; 99284; G0378; J1885; J2270; J2405; J2543; J7030; Q9967

== ENCOUNTER 2020-02-03 06:41 | Emergency (ER) | payer OTHER ==
[~2020-02-03] VITALS: Ht 180.3 cm; Wt 136.1 kg
[~2020-02-03 06:41] MED LIST changes: +PANTOPRAZOLE SO40 MG PO; +ZOFRAN4 MG PO
--- OUTSIDE RECORDS SUMMARY | 2020-02-03 06:45 | XMS REPORT | Continuity of Care Document ---
Author Author [facility] Organization [facility] Address [address] [place] [address] Phone Unavailable Care Team Providers Care Child And Youth Program Assistant Name Role Phone JESI STANTON DO PCP LACEY MCCOY Attphys Unavailable SHEBIB, ZA Attphys Unavailable KILLAMJESI Attphys Unavailable KILLAM, JESI Admphys Unavailable Payers Payer Name Policy Type Policy Number Effective Date Expiration Date Hermann Arredondo o [id number] 2018 00:00:00 [facility] Problems Condition Name Condition Details Condition Category Status Onset Date Resolution Date Last Treatment Date Treating Clinician Comments Source Intra-abdominal abscess Intra-abdominal abscess Problem Active [facility] Pancreatitis Pancreatitis Problem Active [facility] Allergies, Adverse Reactions, Alerts This patient has no known allergies or adverse reactions. Medications Ordered Medication Name Filled Medication Name Start Date Stop Da te Current Medication? Ordering Clinician Indication Dosage Frequency Signature (SIG) Comments Components Source Acetaminophen With Codeine (Tylenol With Codeine #3 Ta blet) 1 Each Tablet Acetaminophen With Codeine (Tylenol With Codeine #3 Tablet) 1 Each Tablet 2019-07-13 00:00:00 Yes Kathryn Toth [employer] 300 Every 8 Hours as needed for Abdominal Pain [facility] Ondansetron Hcl (Zofran*) 4 Mg Tablet Ondansetron Hcl (Zofra n*) 4 Mg Tablet 2019-07-13 00:00:00 Yes Kathryn Toth [employer] 4 Every 8 Hours as needed for Nausea [facility] Pantoprazole Sodium (Protonix) 40 Mg Tablet. Pantopr azole Sodium (Protonix) 40 Mg Tablet. 2019-07-13 00:00:00 Yes Kathryn Toth [employer] 40 Daily@0600 [facility] Acetaminophen With Codeine (Tylenol With Codeine #3 Tablet) 1 Each Tablet, 300 Mg Oral Acetaminophen With Codeine (Tylenol With Codeine #3 Tablet) 1 Each Tablet, 300 Mg Oral 2018 00:00:00 2019-06-24 00:00:00 No Kathryn Toth [employer] 300 Every 8 Hours as needed for Pain [facility] Cholestyramine (Cholestyramine Light Packet) 4 Gm Pack , 4 Gm Oral Cholestyramine (Cholestyramine Light Packet) 4 Gm Pack, 4 Gm Oral 2018 00:00:00 2019-06-24 00:00:00 No Kathryn Toth [employer] 4 Twice A Da y [facility] Lactobacillus Acidophilus 1 Tab Tab, 1 Tab Oral Lactob acillus Acidophilus 1 Tab Tab, 1 Tab Oral 2018 00:00:00 2019-06-24 00:00:00 No Kathryn doe [employer] 1 Twice A Day [facility] Levothyroxine Sodium 25 Mcg Tablet, 25 Mcg Oral Levoth yroxine Sodium 25 Mcg Tablet, 25 Mcg Oral 2018 00:00:00 2019-06-24 00:00:00 No Kathryn Toth [employer] 25 Daily@06 [facility] Atorvastatin Calcium 10 Mg Tablet Atorvastatin Calcium 10 Mg Tablet Yes 10 Morning [facility] Ibuprofen 400 Mg Tablet Ibuprofen 400 Mg Tablet Yes 80 0 As Needed [facility] Naproxen Sodium (Aleve) 220 Mg Capsule, 1 Cap Oral Nap roxen Sodium (Aleve) 220 Mg Capsule, 1 Cap Oral 2019-07-13 00:00:00 No 1 A s Needed [facility] Procedures Procedure Date / Time Performed Performing Clinician [facility] Computed tomography of abdomen and pelvis with contrast 2018 00:00:00 BRUNA PHELAN [facility] COLONOSCOPY AND BIOPSY 2019-06-25 00:00:00 MARK LOVETT [facility] COLONOSCOPY W/LESION REMOVAL 2019-06-25 00:00:00 MARK LOVETT [facility] COLONOSCOPY W/LESION REMOVAL 2019-06-25 00:00:00 LOVETTMARK [facility] Computed tomography of abdomen and pelvis with contrast 2018 00:00:00 ISABELL ENGLAND [facility] Computed tomography of abdomen and pelvis with contrast 2018 00:00:00 NAVNEETKATHRYN Carmen [facility] INSERTION OF INFUSION DEV INTO SUP VENA CAVA, PERC APPROACH 2018-11-30 00:00:00 ANDRE DE LA TORRE [facility] Computed tomography of abdomen and pelvis with contrast 2018 00:00:00 BJ RODRIGUEZ [facility] Encounters Start Date/Time End Date/Time Encounter Type Admission Type [facility] Care Department Encounter ID Source 2019-07-12 06:58:00 2019-07-13 15:16:00 Discharged Inpatient 1 DARIUSLACEY [facility] [id number] [facility] 2019-06-25 10:00:00 2019-06-25 10:00:00 Registered [facility] [id number] [facility] 2018-12-25 10:22:00 2018-12-25 10:22:00 Registered Clinic 3 ISABELL ENGLAND [facility] [id number] [facility] 2018-11-28 18:21:00 2018-12-02 18:03:00 Discharged Inpatient 1 JESI DUNN [facility] [id number] [facility] Results Test Description Test Time Test Comments Results Result Comments Source Sodium Level 2019-07-13 03:36:00 Test Item Sodium Level (test code = 2951-2) 136 136-145 [facility] WorthPotassium Cnrka2194-18-70 03:36:00* Test Item Value Reference Range Interpretation Comments Potassium Level (test code = 2823-3) 3.8 3.5-5.1 [facility] WorthChloride Qghyw6218-19-13 03:36:00* Test Item Value Reference Range Interpretation Comments Chloride Level (test code = 2075-0) 103 98-107 [facility] WorthCarbon Dioxide Bkayv1022-23-15 03:36:00* Test Item Value Reference Range Interpretation Comments Carbon Dioxide Level (test code = 2028-9) 25 22-29 [facility] WorthAnion Anw4618-30-26 03:36:00* Test Item Value Reference Range Interpretation Comments Anion Gap (test code = 59492-2) 11.8 8-16 [facility] WorthBlood Urea Wimwzdyy2350-44-11 03:36:00* Test Item Value Reference Range Interpretation Comments Blood Urea Nitrogen (test code = 3094-0) 11 7-26 [facility] WorthCreatinine2019-11-11 03:36:00* Test Item Value Reference Range Interpretation Comments Creatinine (test code = 2160-0) 0.94 0.72-1.25 [facility] WorthBUN/Creatinine Taieg0967-14-45 03:36:00* Test Item Value Reference Range Interpretation Comments BUN/Creatinine Ratio (test code = 3097-3) 12 6- [facility] WorthEstimat Glomerular Filtration Rate 2019-07-13 03:36:00* Test Item Value Reference Range Interpretation Comments Estimat Glomerular Filtration Rate (test code = 922617983) > 60 >60 Ranges were taken from the National Kidney Disease Education Program and the [facility] Kid[facility] Foundation literature.Reference ranges:60 or greater: Napyjk31-81 ( for 3 consecutive months): Chronic kidney disease 15 or less: Kidney failureBaylor Scott & [facility] WorthGlucose Fbpsr1360-33-12 03:36:00* Test Item Value Reference Range Interpretation Comments Glucose Level (test code = UEP0988) 75 74-118 [facility] WorthCalcium Guocy6145-03-89 03:36:00* Test Item Value Reference Range Interpretation Comments Calcium Level (test code = 96854-3) 8.9 8.4-10.2 [facility] WorthHemoglobin A1c Crzwaew0072-91-33 03:36:00 * Test Item Value Reference Range Interpretation Comments Hemoglobin A1c Percent (test code = Hemoglobin A1c Percent) 5.5 4.0-7.0 [facility] WorthTriglycerides Rxgcp3857-49-95 03:36:00* Test Item Value Reference Range Interpretation Comments Triglycerides Level (test code = 2571-8) 82 0-149 [facility] WorthCholesterol Qbrcz9695-58-56 03:36:00* Test Item Value Reference Range Interpretation Comments Cholesterol Level (test code = 2093-3) 130 0-199 Less than 200 mg/dL Low Ganm164 - 239 mg/dL Borderline Yfzx196 m g/dl and greater High Risk [facility] WorthLDL Adwhuajtdeg6607-13-03 03:36:00* Test Item Value Reference Range Interpretation Comments LDL Cholesterol (test code = 2089-1) 82 60-130 [facility] WorthHDL Jtprbdudztp1861-37-37 03:36:00* Test Item Value Reference Range Interpretation Comments HDL Cholesterol (test code = 2085-9) 32 40-60 L [facility] WorthCholesterol/HDL Oddyi5194-78-58 03:36:00 * Test Item Value Reference Range Interpretation Comments Cholesterol/HDL Ratio (test code = 9830-1) 4.1 3.9-4.7 [facility] WorthLipase2019-11-11 03:36:00* Test Item Value Reference Range Interpretation Comments Lipase (test code = 3040-3) 31 8-78 [facility] WorthWhite Blood Yltdf0573-24-53 03:11:00* Test Item Value Reference Range Interpretation Comments White Blood Count (test code = 6690-2) 7.75 4.8-10.8 [facility] WorthRed Blood Uwjqy3749-75-01 03:11:00* Test Item Value Reference Range Interpretation Comments Red Blood Count (test code = 789-8) 4.87 4.3-5.7 [facility] WorthHemoglobin2019-11-11 03:11:00* Test Item Value Reference Range Interpretation Comments Hemoglobin (test code = 08125-2) 14.4 14.0-18.0 [facility] WorthHematocrit2019-11-11 03:11:00* Test Item Value Reference Range Interpretation Comments Hematocrit (test code = 4544-3) 43.4 38.2-49.6 [facility] WorthMean Corpuscular Hpcmof5229-80-33 03:11:00* Test Item Value Reference Range Interpretation Comments Mean Corpuscular Volume (test code = 787-2) 89.1 81-99 [facility] WorthMean Corpuscular Isqmrnhfbz8741-00-66 03:11:00* Test Item Value Reference Range Interpretation Comments Mean Corpuscular Hemoglobin (test code = 785-6) 29.6 28-32 [facility] WorthMean Corpuscular Hemoglobin Concent 2019-07-13 03:11:00* Test Item Value Reference Range Interpretation Comments Mean Corpuscular Hemoglobin Concent (test code = 786-4) 33.2 31-35 [facility] WorthRed Cell Distribution Xworc0586-47-73 03:11:00* Test Item Value Reference Range Interpretation Comments Red Cell Distribution Width (test code = 86616-9) 12.7 11.7 -14.4 [facility] WorthPlatelet Efvhu3712-85-85 03:11:00* Test Item Value Reference Range Interpretation Comments Platelet Count (test code = 777-3) 203 140-360 [facility] WorthNeutrophils (%) (Auto)2019-07-13 03:11:00 * Test Item Value Reference Range Interpretation Comments Neutrophils (%) (Auto) (test code = 45988-6) 55.6 38.7-80.0 [facility] WorthLymphocytes (%) (Auto)2019-07-13 03:11:00 * Test Item Value Reference Range Interpretation Comments Lymphocytes (%) (Auto) (test code = 736-9) 32.5 18.0-39.1 [facility] WorthMonocytes (%) (Auto)2019-07-13 03:11:00* Test Item Value Reference Range Interpretation Comments Monocytes (%) (Auto) (test code = 5905-5) 7.5 4.4-11.3 [facility] WorthEosinophils (%) (Auto)2019-07-13 03:11:00 * Test Item Value Reference Range Interpretation Comments Eosinophils (%) (Auto) (test code = 713-8) 3.6 0.0-6.0 [facility] WorthBasophils (%) (Auto)2019-07-13 03:11:00* Test Item Value Reference Range Interpretation Comments Basophils (%) (Auto) (test code = 706-2) 0.5 0.0-1.0 [facility] WorthIM GRANULOCYTES %2019-07-13 03:11:00* Test Item Value Reference Range Interpretation Comments IM GRANULOCYTES % (test code = IM GRANULOCYTES %) 0.3 0.0- 1.0 [facility] WorthNeutrophils # (Auto)2019-07-13 03:11:00* Test Item Value Reference Range Interpretation Comments Neutrophils # (Auto) (test code = 751-8) 4.3 2.1-6.9 [facility] WorthLymphocytes # (Auto)2019-07-13 03:11:00* Test Item Value Reference Range Interpretation Comments Lymphocytes # (Auto) (test code = 42543-7) 2.5 1.0-3.2 [facility] WorthMonocytes # (Auto)2019-07-13 03:11:00* Test Item Value Reference Range Interpretation Comments Monocytes # (Auto) (test code = 742-7) 0.6 0.2-0.8 [facility] WorthEosinophils # (Auto)2019-07-13 03:11:00* Test Item Value Reference Range Interpretation Comments Eosinophils # (Auto) (test code = 711-2) 0.3 0.0-0.4 [facility] WorthBasophils # (Auto)2019-07-13 03:11:00* Test Item Value Reference Range Interpretation Comments Basophils # (Auto) (test code = 704-7) 0.0 0.0-0.1 [facility] WorthAbsolute Immature Granulocyte (auto 2019-07-13 03:11:00* Test Item Value Reference Range Interpretation Comments Absolute Immature Granulocyte (auto (debbie t code = Absolute Immature Granulocyte (auto) 0.02 0-0.1 [facility] Y3377-45-87 18:26:00 [facility] [address] [address] Patient Name: SOUTH MONTGOMERY MR #: [id number] : 1965 Age/Sex: 53/M Req #: [id number] Adm Physician: Ordered by: BRUNA PHELAN NP Report #: [id number] Location: ER Room/Bed: Procedure: 1109-[address]/CT ABDOMEN/PELVIS W Exam Date: 07/11/19 Exam Ti me: 1740 REPORT STATUS: Signed E XAM: CT Abdomen and Pelvis WITH contrast INDICATION: abd pain 20 [id number] COMPARISON: CT dated 12/25/2018 TECHNIQUE: Abdomen and pelvis were scanned utilizing a multidetector helical scanner from the lung base to the pubic symphysis after administration of IV contrast. Coronal and sagittal reformations were obtained. Dose modulation, iterative reconstruction, and/or weight based adjustment of the mA/kV was utilized to reduce the radiation dose to as low as reasonably achievable. Routine protocol was performed. Scan was performed when during portal venous phase. IV CONTRAST: 100 mL of I sovue-370 ORAL CONTRAST: Gastroview COMPLICATIONS: None RADIATION DOSE: Total DLP: 885.23 mGy*cm Estimated effective dose: (DLP x 0.015 x size factor) mSv CTDIvol has been reviewed. It is be low the limits set by the Radiation Protocol Committee (RPC). FINDINGS: LINES and TUBES: None. LOWER THORAX: Dependent atelectasis. HEPAT OBILIARY: No focal hepatic lesions. No biliary ductal dilation. GALLB LADDER: No radio-opaque stones or sludge. No wall thickening. SPLEEN: No s plenomegaly. PANCREAS: No focal masses or ductal dilatation. Mild fat stra nding around the pancreatic head. ADRENALS: No adrenal nodules KIDNEYS/URETERS: Kidneys enhance symmetrically. No hydronephrosis. No cystic or solid mass lesions. No stones. GI TRACT: No abnormal distention, wall t hickening, or evidence of bowel obstruction. There are diverticula within the colon without evidence of diverticulitis. Appendix is normal. PELVIC OR ALAINA/BLADDER: Unremarkable. LYMPH NODES: No lymphadenopathy. VESSELS: Unremarkable. PERITONEUM / RETROPERITONEUM: No free air or fluid. BONE S: Unremarkable. SOFT TISSUES: Small fat-containing bilateral inguinal adriana ia. IMPRESSION: 1. Mild fat stranding around the pancreatic head, suspicious for focal pancreatitis. Otherwise, no acute inflammatory pro cess in the abdomen/pelvis. 2. Colonic diverticulosis without evidence of div erticulitis. Signed by: Dr. Xavi Garcia MD on 07/11/2019 6:51 PM Dictated By: XAVI GARCIA MD 50 COPY TO: CAYLA PHELAN NP Total Auqeyocrn8269-14-73 15:59:00* Test Item Value Reference Range Interpretation Comments Total Bilirubin (test code = 1975-2) 0.6 0.2-1.2 [facility] WorthAspartate Amino Transf (AST/SGOT) 2019-07-11 15:59:00* Test Item Value Reference Range Interpretation Comments Aspartate Amino Transf (AST/SGOT) (test code = Aspartate Amino Transf (AST/SGOT)) 21 5-34 [facility] WorthAlanine Aminotransferase (ALT/SGPT) 2019-07-11 15:59:00* Test Item Value Reference Range Interpretation Comments Alanine Aminotransferase (ALT/SGPT) (test code = 1742-6) 23 0-55 [facility] WorthTotal Kccekzk7052-93-09 15:59:00* Test Item Value Reference Range Interpretation Comments Total Protein (test code = 2885-2) 8.4 6.5-8.1 H [facility] WorthAlbumin2019-11-09 15:59:00* Test Item Value Reference Range Interpretation Comments Albumin (test code = 1751-7) 4.0 3.5-5.0 [facility] WorthGlobulin2019-11-09 15:59:00* Test Item Value Reference Range Interpretation Comments Globulin (test code = 68944-4) 4.4 2.3-3.5 H [facility] WorthAlbumin/Globulin Eyegm4825-64-31 15:59:00 * Test Item Value Reference Range Interpretation Comments Albumin/Globulin Ratio (test code = 1759-0) 0.9 0.8-2.0 [facility] WorthAlkaline Xcbswnpsoxd3866-59-48 15:59:00* Test Item Value Reference Range Interpretation Comments Alkaline Phosphatase (test code = 6768-6) 75 40-150 [facility] WorthCreatine Gswsbu7213-00-83 15:59:00* Test Item Value Reference Range Interpretation Comments Creatine Kinase (test code = 2157-6) 152 30-200 [facility] WorthCreatine Kinase VH1830-75-56 15:59:00* Test Item Value Reference Range Interpretation Comments Creatine Kinase MB (test code = 91991-6) 1.60 0-5.0 [facility] WorthTroponin M2145-81-72 15:59:00* Test Item Value Reference Range Interpretation Comments Troponin I (test code = OKE4147) < 0.001 0-0.300 [facility] Fort WorthLactic Acid Nlcjg2749-97-18 15:44:00* Test Item Value Reference Range Interpretation Comments Lactic Acid Level (test code = Lactic Acid Level) 1.4 0.5- 2.0 [facility] WorthB-Type Natriuretic Rpykoft0025-40-48 15:44:00* Test Item Value Reference Range Interpretation Comments B-Type Natriuretic Peptide (test code = 04809-7) 22.9 0-100 [facility] WorthCT ABDOMEN/PELVIS M8957-33-85 14:02:00 [facility] [address] [place] [address] Patient Name: SOUTH MONTGOMERY MR #: [id number] : 1965 Age/Sex: 53/M Req #: [id number] Adm Physician: Ordered by: ISABELL ENGLAND MD Report #: [id number] Location: CT Room/Bed: Procedure: 2898-4598 C T/CT ABDOMEN/PELVIS W Exam Date: 12/25/18 Exam Time: 1215 REPORT STATUS: Signed EXAM: CT Abdomen and Pelvis WITH contrast INDICATION: Diverticulitis. C OMPARISON: CT Abdomen/Pelvis with contrast 2018. TECHNIQUE: Abdomen and pelvis were scanned utilizing a multidetector helical scanner from the lung b ase to the pubic symphysis after administration of IV contrast. Coronal and sa gittal reformations were obtained. Routine protocol was performed. Scan was pe rformed when during portal venous phase. IV CONTRAST: 100 cc of Is ovue 370. ORAL CONTRAST: Gastrografin COMPLICATIONS: None RADIATION DOSE: Total DLP: 942 mGy*cm Dose modulation, iterative reconstruction, and/or weight based adjustment of the mA/kV was util ized to reduce the radiation dose to as low as reasonably achievable. FI NDINGS: LINES and TUBES: None. LOWER THORAX: Unremarkable HEPATOBIL IARY: No evidence of focal lesion. No biliary ductal dilation. GALLBLADDER : No radio-opaque stones or sludge. No wall thickening. SPLEEN: No splenom egaly. PANCREAS: Mild fatty atrophy. No focal masses or ductal dilatation. ADRENALS: No adrenal nodules KIDNEYS/URETERS: Kidneys enhance symm etrically. No evidence of hydronephrosis, solid mass, or stone. GI TRACT : Interval resolution of wall thickening involving the distal ileum. Colonic d iverticulosis, most pronounced in the sigmoid colon, without CT evidence of di verticulitis. No evidence of wall thickening or distension. Appendix is normal . PELVIC ORGANS/BLADDER: Unremarkable. LYMPH NODES: No lymphadenopath y. VESSELS: Scattered atherosclerotic changes in the abdominal aorta. PERITONEUM / RETROPERITONEUM: No free air or fluid. Interval resolution of pel geni fluid collection adjacent to the rectosigmoid colon. BONES AND SOFT TI SSUES: No acute osseous abnormality. No suspicious lytic or blastic lesions. D egenerative changes of the spine. Fat-containing bilateral inguinal hernias, r ight greater than left. CONCLUSION: Interval resolution of fluid collecti on adjacent to the rectosigmoid colon. Sigmoid colonic diverticulosis without CT evidence of diverticulitis. Interval resolution of inflammatory changes involving the distal ileum. Signed by: Dr. Kota Jackson MD on 12/25/2018 2:13 PM Dictated By: KOTA JACKSON MD 1413 Transcribed By: RITCHIE on 12/25/18 1413 COPY TO: ISABELL JOHNSON MD Sodium Rjbco8920-55-12 06:43:00* Test Item Value Reference Range Interpretation Comments Sodium Level (test code = 2951-2) 137 136-145 [facility] WorthPotassium Bpwgh7594-51-80 06:43:00* Test Item Value Reference Range Interpretation Comments Potassium Level (test code = 2823-3) 3.2 3.5-5.1 L [facility] WorthChloride Mswjg1663-91-41 06:43:00* Test Item Value Reference Range Interpretation Comments Chloride Level (test code = 2075-0) 103 98-107 [facility] WorthCarbon Dioxide Hrias1280-91-50 06:43:00* Test Item Value Reference Range Interpretation Comments Carbon Dioxide Level (test code = 2028-9) 26 22-29 [facility] Fort WorthAnion Wzx0593-03-56 06:43:00* Test Item Value Reference Range Interpretation Comments Anion Gap (test code = 92482-7) 11.2 8-16 [facility] WorthBlood Urea Uqqzvyua2902-45-77 06:43:00* Test Item Value Reference Range Interpretation Comments Blood Urea Nitrogen (test code = 3094-0) 9 7-26 [facility] WorthCreatinine2019-04-02 06:43:00* Test Item Value Reference Range Interpretation Comments Creatinine (test code = 2160-0) 0.86 0.72-1.25 [facility] WorthBUN/Creatinine Zrgzq6906-92-78 06:43:00* Test Item Value Reference Range Interpretation Comments BUN/Creatinine Ratio (test code = 3097-3) 10 02-24 [facility] WorthEstimat Glomerular Filtration Rate 2018-12-02 06:43:00* Test Item Value Reference Range Interpretation Comments Estimat Glomerular Filtration Rate (test code = 951581739) > 60 >60 Ranges were taken from the National Kidney Disease Education Program and the [facility] literature.Reference ranges:60 or greater: Qbqnjx03-17 ( for 3 consecutive months): Chronic kidney disease 15 or less: Kidney failureB[facility] Scott & [facility] WorthGlucose Kxgrp5048-96-87 06:43:00* Test Item Value Reference Range Interpretation Comments Glucose Level (test code = DNB8852) 94 74-118 [facility] WorthCalcium Knoif5008-98-70 06:43:00* Test Item Value Reference Range Interpretation Comments Calcium Level (test code = 51488-2) 8.9 8.4-10.2 [facility] Worth[facility] Blood Brrwr4651-34-25 06:17:00* Test Item Value Reference Range Interpretation Comments White Blood Count (test code = 6690-2) 9.93 4.8-10.8 [facility] WorthRed Blood Ogqqo7060-52-52 06:17:00* Test Item Value Reference Range Interpretation Comments Red Blood Count (test code = 789-8) 4.90 4.3-5.7 [facility] WorthHemoglobin2019-04-02 06:17:00* Test Item Value Reference Range Interpretation Comments Hemoglobin (test code = 15769-1) 14.2 14.0-18.0 [facility] WorthHematocrit2019-04-02 06:17:00* Test Item Value Reference Range Interpretation Comments Hematocrit (test code = 4544-3) 42.7 38.2-49.6 [facility] WorthMean Corpuscular Gvtrcx9889-84-15 06:17:00* Test Item Value Reference Range Interpretation Comments Mean Corpuscular Volume (test code = 787-2) 87.1 81-99 [facility] WorthMean Corpuscular Phwkgnafri8699-27-42 06:17:00* Test Item Value Reference Range Interpretation Comments Mean Corpuscular Hemoglobin (test code = 785-6) 29.0 28-32 [facility] WorthMean Corpuscular Hemoglobin Concent 2018-12-02 06:17:00* Test Item Value Reference Range Interpretation Comments Mean Corpuscular Hemoglobin Concent (test code = 786-4) 33.3 31-35 [facility] WorthRed Cell Distribution Ggvrr8255-79-52 06:17:00* Test Item Value Reference Range Interpretation Comments Red Cell Distribution Width (test code = 37545-8) 12.6 11.7 -14.4 [facility] WorthPlatelet Qfbxq1350-67-50 06:17:00* Test Item Value Reference Range Interpretation Comments Platelet Count (test code = 777-3) 292 140-360 [facility] WorthNeutrophils (%) (Auto)2018-12-02 06:17:00 * Test Item Value Reference Range Interpretation Comments Neutrophils (%) (Auto) (test code = 99395-0) 64.1 38.7-80.0 [facility] WorthLymphocytes (%) (Auto)2018-12-02 06:17:00 * Test Item Value Reference Range Interpretation Comments Lymphocytes (%) (Auto) (test code = 736-9) 25.1 18.0-39.1 [facility] WorthMonocytes (%) (Auto)2018-12-02 06:17:00* Test Item Value Reference Range Interpretation Comments Monocytes (%) (Auto) (test code = 5905-5) 6.9 4.4-11.3 [facility] WorthEosinophils (%) (Auto)2018-12-02 06:17:00 * Test Item Value Reference Range Interpretation Comments Eosinophils (%) (Auto) (test code = 713-8) 2.8 0.0-6.0 [facility] WorthBasophils (%) (Auto)2018-12-02 06:17:00* Test Item Value Reference Range Interpretation Comments Basophils (%) (Auto) (test code = 706-2) 0.6 0.0-1.0 [facility] WorthIM GRANULOCYTES %2018-12-02 06:17:00* Test Item Value Reference Range Interpretation Comments IM GRANULOCYTES % (test code = IM GRANULOCYTES %) 0.5 0.0- 1.0 [facility] WorthNeutrophils # (Auto)2018-12-02 06:17:00* Test Item Value Reference Range Interpretation Comments Neutrophils # (Auto) (test code = 751-8) 6.4 2.1-6.9 [facility] WorthLymphocytes # (Auto)2018-12-02 06:17:00* Test Item Value Reference Range Interpretation Comments Lymphocytes # (Auto) (test code = 10655-5) 2.5 1.0-3.2 [facility] WorthMonocytes # (Auto)2018-12-02 06:17:00* Test Item Value Reference Range Interpretation Comments Monocytes # (Auto) (test code = 742-7) 0.7 0.2-0.8 [facility] WorthEosinophils # (Auto)2018-12-02 06:17:00* Test Item Value Reference Range Interpretation Comments Eosinophils # (Auto) (test code = 711-2) 0.3 0.0-0.4 [facility] WorthBasophils # (Auto)2018-12-02 06:17:00* Test Item Value Reference Range Interpretation Comments Basophils # (Auto) (test code = 704-7) 0.1 0.0-0.1 [facility] WorthAbsolute Immature Granulocyte (auto 2018-12-02 06:17:00* Test Item Value Reference Range Interpretation Comments Absolute Immature Granulocyte (auto (debbie t code = Absolute Immature Granulocyte (auto) 0.05 0-0.1 [facility] WorthCT ABDOMEN/PELVIS [id number] 18:05:00 [facility] [address] [address] Patient Name: SOUTH MONTGOMERY MR #: [id number] : 1965 Age/Sex: 53/M Req #: [id number] Adm Physician: JESI DUNN MD Ordered by: Kathryn Toth PICKING TABLE WORKER Report #: [id number] Location: MED/SURG3 Room/Bed: 293 Procedure: [id number]/CT ABDOMEN/PELVIS W Exam Date: 12/01/18 Exam Ti me: 1710 REPORT STATUS: Signed E XAM: CT Abdomen and Pelvis WITH contrast INDICATION: Follow-up intra-abdomin al abscess COMPARISON: 11/28/2018 TECHNIQUE: Abdomen and pelvis were sc anned utilizing a multidetector helical scanner from the lung base to the pubi c symphysis after administration of IV contrast. Coronal and sagittal reformat ions were obtained. Routine protocol was performed. Scan was performed when du ring portal venous phase. IV CONTRAST: 100 mL of Isovue-370 OR AL CONTRAST: Water COMPLICATIONS: None RADIATION DOSE: Total DLP: 950.67 mGy*cm Estimated effective dose: (DLP x 0.015 x size factor) mSv CTDIvol has been reviewed. It is below the limits set by the Radiation Protocol Committee (RPC). Dose modulation, iterative recons truction, and/or weight based adjustment of the mA/kV was utilized to reduce t he radiation dose to as low as reasonably achievable. FINDINGS: KRYSTINA ES and TUBES: None. LOWER THORAX: Unremarkable Liver: Normal attenuat ion. No evidence for mass. Gallbladder: Present and appears normal. No lesly iary ductal dilatation. Pancreas: Mild fatty atrophy without mass or ductal dilatation. Spleen: Normal in size. No evidence of mass.. Adrenal Gl ands: No evidence for mass. Kidneys: Right: Normal enhancement. No s oft tissue mass. No hydronephrosis. Left: Normal enhancement. No soft ti ssue mass. No hydronephrosis. Lymph Nodes: No enlarged abdominal or periao rtic lymph nodes. Aorta: Normal in diameter with scattered calcifications . The celiac artery and SMA are widely patent. PELVIS FINDINGS: [place] el: Stomach: Collapsed otherwise unremarkable. Small Bowel: Multiple loop s of small bowel with mural thickening in the right hemiabdomen centrally unch anged. Diverticulosis is redemonstrated without evidence of an inflamed di verticulum. However, there is small amount of ascites on either side of the re ctal sigmoid colon. A fluid collection to the right and inferior to the r ectosigmoid colon is essentially unchanged in size. There is mild peripheral e nhancement. Along the right peritoneal reflection is a hyperdense focus measur ing 3 to 4 mm. This is stable. A small focus of adjacent free air identified o n previous CT is no longer visualized. The small droplets of air adjacent to t he rectosigmoid colon on the left are no longer visualized. Appendix: Nor mal appendix. Bladder: Under distended but otherwise normal. Peritone um/retroperitoneum: There is edema throughout the leaves of the small bowel me sentery in the right hemiabdomen. No evidence of free air in the upper abdomen . Bones: Mild degenerative changes of the spine. Soft tissues: Fat-con taining bilateral inguinal hernias, right larger than left. IMPRESSION: 1. Unchanged fluid collection adjacent to the rectosigmoid colon is conc erning for developing abscess. The pneumoperitoneum associated with the rectos igmoid colon is no longer visualized. An inflamed diverticulum is not identif ied. 2. Unchanged long segment diffuse mural thickening of the ileum, inc luding the terminal ileum, with associated mesenteric edema. Findings are sugg estive of infectious enteritis given its rapid development. There are no CT fi ndings of ischemia which is also included in the differential. There is no daniella dence of bowel obstruction. 3. Normal appendix. Signed by: Dr. Lexi Jain M.D. on 2018 6:12 PM Dictated By: NICOL JAIN MD, MD Electr onically Signed By: NICOL JAIN MD, MD on 12/01/181811 Transcribed By: BLAIR Ortega on 12/01/181811 COPY TO: KATHRYN TOTH PICKING TABLE WORKER Magnesium Level 2018 06:04:00* Test Item Value Reference Range Interpretation Comments Magnesium Level (test code = 82939-8) 1.9 1.3-2.1 [facility] Ldski4693-27-13 06:04:00* Test Item Value Reference Range Interpretation Comments Magnesium Level (test code = 05991-9) 1.9 1.3-2.1 [facility]CHEST XRAY LINE [id number] 20:24:00 [facility] [address] [place] [address] Patient Name: SOUTH MONTGOMERY MR #: [id number] : 1965 Age/Sex: 52/M Req #: [id number] Adm Physician: JESI DUNN MD Ordered by: ISABELL ENGLAND MD Report #: [id number] Location: [facility] Room/Bed: [facility] Procedure: [id number] DX/CHEST XRAY LINE PLACEMENT Exam Date: 11/30/18 Exama[place] m Time: 2014 REPORT STATUS: Signed EXAMINATION: CHEST XRAY LINE PLACEMENT INDICATION: CHECK PICC LINE PLACEMENT COMPARISON: Chest x-ray 11/28/2018 FINDINGS: AP view TUBES and LINES: Left upper extremity PICC tip projects over the lower SVC. LUNGS: There is no evidence of pneumonia or pulmonary edema. PLE URA: No pleural effusion or pneumothorax. HEART AND MEDIASTINUM: The card iomediastinal silhouette is unremarkable. BONES AND SOFT TISSUES: No a cute osseous lesion. Soft tissues are unremarkable. UPPER ABDOMEN: No fr ee air under the diaphragm. IMPRESSION: Left upper extremity PICC ti p projects over the lower SVC. No pneumothorax. Signed by: DR. Andre maher MD on 11/30/2018 8:28 PM Dictated By: ANDRE DE LA TORRE MD 27 Transcribed By: RITCHIE on 2027 COPY TO: ISABELL ENGLAND MD Clostridium Difficile Toxin A & [id number] 15:46:00* Test Item Value Reference Range Interpretation Comments Clostridium Difficile Toxin A & B (test code = 272918066) NEGATIVE NEGATIVE Testing on stool aspirate specimens is outside software validation technician claims since specime n type not validated on this assay.[facility] Clostridium Difficile Toxin A & [id number] 15:46:00* Test Item Value Reference Range Interpretation Comments Clostridium Difficile Toxin A & B (test code = 505766004) NEGATIVE NEGATIVE Testing on stool aspirate specimens is outside software validation technician claims since specime n type not validated on this assay.[facility] WorthFree Erwoqwsuf3214-91-98 09:42:00* Test Item Value Reference Range Interpretation Comments Free Thyroxine (test code = 3024-7) 1.00 0.9-1.8 [facility] WorthThyroid Stimulating Hormone (TSH) 2018-11-30 09:42:00* Test Item Value Reference Range Interpretation Comments Thyroid Stimulating Hormone (TSH) (test code = 29704-9) 6.148 0.350-4.940 H [facility] WorthFree Xilewnnhz7105-08-29 09:42:00* Test Item Value Reference Range Interpretation Comments Free Thyroxine (test code = 3024-7) 1.00 0.9-1.8 [facility] WorthThyroid Stimulating Hormone (TSH) 2018-11-30 09:42:00* Test Item Value Reference Range Interpretation Comments Thyroid Stimulating Hormone (TSH) (test code = 97180-8) 6.148 0.350-4.940 H [facility] WorthB-Type Natriuretic Jlustfo3078-04-67 09:32:00* Test Item Value Reference Range Interpretation Comments B-Type Natriuretic Peptide (test code = 04049-4) 20.8 0-100 [facility] WorthHemoglobin A1c Coezvii6356-58-68 09:20:00 * Test Item Value Reference Range Interpretation Comments Hemoglobin A1c Percent (test code = Hemoglobin A1c Percent) 5.4 4.0-7.0 [facility] WorthTriglycerides Gfkjb6635-95-23 09:19:00* Test Item Value Reference Range Interpretation Comments Triglycerides Level (test code = 2571-8) 79 0-149 [facility] WorthCholesterol Stqab8596-79-98 09:19:00* Test Item Value Reference Range Interpretation Comments Cholesterol Level (test code = 2093-3) 105 0-199 Less than 200 mg/dL Low Ceha770 - 239 mg/dL Borderline Omvr727 m g/dl and greater High Risk [facility] Fort WorthLDL Pdtewchxgue7060-72-83 09:19:00* Test Item Value Reference Range Interpretation Comments LDL Cholesterol (test code = 2089-1) 64 60-130 [facility] Fort WorthHDL Jhugeudjgqk2751-06-23 09:19:00* Test Item Value Reference Range Interpretation Comments HDL Cholesterol (test code = 2085-9) 25 40-60 L [facility] WorthCholesterol/HDL Lnliv3986-66-30 09:19:00 * Test Item Value Reference Range Interpretation Comments Cholesterol/HDL Ratio (test code = 9830-1) 4.2 3.9-4.7 [facility] WorthUrine SYR3927-13-76 22:52:00* Test Item Value Reference Range Interpretation Comments Urine WBC (test code = 5821-4) 0-5 0-5 [facility] WorthUrine KXP9072-09-75 22:52:00* Test Item Value Reference Range Interpretation Comments Urine RBC (test code = 65483-3) 0-5 0-5 [facility] WorthUrine Bolwonty1891-64-40 22:52:00* Test Item Value Reference Range Interpretation Comments Urine Bacteria (test code = 22699-2) NONE NONE [facility] WorthUrine Epithelial Aoquq1484-68-92 22:52:00 * Test Item Value Reference Range Interpretation Comments Urine Epithelial Cells (test code = 25278-1) FEW NONE [facility] WorthUrine [id number] 22:52:00* Test Item Value Reference Range Interpretation Comments Urine WBC (test code = 5821-4) 0-5 0-5 [facility] WorthUrine [id number] 22:52:00* Test Item Value Reference Range Interpretation Comments Urine RBC (test code = 33202-3) 0-5 0-5 [facility] WorthUrine Ulwncefn1756-62-43 22:52:00* Test Item Value Reference Range Interpretation Comments Urine Bacteria (test code = 08948-7) NONE NONE [facility] WorthUrine Epithelial Jwtvs9497-03-42 22:52:00 * Test Item Value Reference Range Interpretation Comments Urine Epithelial Cells (test code = 99730-6) FEW NONE [facility] WorthUrine Vehnu9159-83-80 22:39:00* Test Item Value Reference Range Interpretation Comments Urine Color (test code = 5778-6) YELLOW YELLOW [facility] WorthUrine Arqtbii1915-06-76 22:39:00* Test Item Value Reference Range Interpretation Comments Urine Clarity (test code = 31869-1) CLEAR CLEAR [facility] WorthUrine Specific Entcfjn2366-43-71 22:39:00 * Test Item Value Reference Range Interpretation Comments Urine Specific [place] (test code = 5811-5) 1.010 1.010-1.02 5 [facility] WorthUrine [id number] 22:39:00* Test Item Value Reference Range Interpretation Comments Urine pH (test code = 38712-5) 6 5-7 [facility] WorthUrine Leukocyte Niemykdn9384-78-88 22:39:00* Test Item Value Reference Range Interpretation Comments Urine Leukocyte Esterase (test code = 5799-2) NEGATIVE NEGATIVE [facility] WorthUrine Qfhvopn1212-06-27 22:39:00* Test Item Value Reference Range Interpretation Comments Urine Nitrite (test code = 17161-6) NEGATIVE NEGATIVE [facility] WorthUrine Bmmnmcw6193-89-95 22:39:00* Test Item Value Reference Range Interpretation Comments Urine Protein (test code = 5804-0) NEGATIVE NEGATIVE [facility] WorthUrine Glucose (UA)2018-11-29 22:39:00* Test Item Value Reference Range Interpretation Comments Urine Glucose (UA) (test code = 2349-9) NEGATIVE NEGATIVE [facility] Gqryjsh9765-47-35 22:39:00* Test Item Value Reference Range Interpretation Comments Urine Ketones (test code = 27182-2) TRACE NEGATIVE H [facility] Vwniqxarjbzq4249-37-41 22:39:00* Test Item Value Reference Range Interpretation Comments Urine Urobilinogen (test code = 82832-7) 0.2 0.2-1 [facility] Ypjwjmzef3278-77-52 22:39:00* Test Item Value Reference Range Interpretation Comments Urine Bilirubin (test code = 1978-6) NEGATIVE NEGATIVE [facility] Nqylf2604-42-78 22:39:00* Test Item Value Reference Range Interpretation Comments Urine Blood (test code = 26274-0) NEGATIVE NEGATIVE [facility] WorthUrine Ubwjk4779-76-35 22:39:00* Test Item Value Reference Range Interpretation Comments Urine Color (test code = 5778-6) YELLOW YELLOW [facility] WorthUrine Mnjfvve7086-27-00 22:39:00* Test Item Value Reference Range Interpretation Comments Urine Clarity (test code = 81079-2) CLEAR CLEAR [facility] WorthUrine Specific Faapqgq1235-78-42 22:39:00 * Test Item Value Reference Range Interpretation Comments Urine Specific [place] (test code = 5811-5) 1.010 1.010-1.02 5 [facility] WorthUrine [id number] 22:39:00* Test Item Value Reference Range Interpretation Comments Urine pH (test code = 37224-0) 6 5-7 [facility] WorthUrine Leukocyte Iwlleofx5856-41-68 22:39:00* Test Item Value Reference Range Interpretation Comments Urine Leukocyte Esterase (test code = 5799-2) NEGATIVE NEGATIVE [facility] WorthU[facility] Gjrhufk9062-55-68 22:39:00* Test Item Value Reference Range Interpretation Comments Urine Nitrite (test code = 85988-7) NEGATIVE NEGATIVE [facility] WorthU[facility] Sbpurlh8021-17-46 22:39:00* Test Item Value Reference Range Interpretation Comments Urine Protein (test code = 5804-0) NEGATIVE NEGATIVE [facility] WorthUrine Glucose (UA)2018-11-29 22:39:00* Test Item Value Reference Range Interpretation Comments Urine Glucose (UA) (test code = 2349-9) NEGATIVE NEGATIVE [facility] WorthUrine Wbeullb7554-01-54 22:39:00* Test Item Value Reference Range Interpretation Comments Urine Ketones (test code = 22671-2) TRACE NEGATIVE H [facility] Nhbvdvahnirz5629-89-05 22:39:00* Test Item Value Reference Range Interpretation Comments Urine Urobilinogen (test code = 93534-8) 0.2 0.2-1 [facility] WorthUrine Xpkhqwzfe9166-12-69 22:39:00* Test Item Value Reference Range Interpretation Comments Urine Bilirubin (test code = 1978-6) NEGATIVE NEGATIVE [facility] WorthU[facility] Rqjsu1002-43-43 22:39:00* Test Item Value Reference Range Interpretation Comments Urine Blood (test code = 53119-1) NEGATIVE NEGATIVE [facility] WorthTotal Agmqgravl9689-10-95 07:27:00* Test Item Value Reference Range Interpretation Comments Total Bilirubin (test code = 1975-2) 0.6 0.2-1.2 [facility] WorthAspartate Amino Transf (AST/SGOT) 2018-11-29 07:27:00* Test Item Value Reference Range Interpretation Comments Aspartate Amino Transf (AST/SGOT) (test code = Aspartate Amino Transf (AST/SGOT)) 14 5-34 [facility] WorthAlanine Aminotransferase (ALT/SGPT) 2018-11-29 07:27:00* Test Item Value Reference Range Interpretation Comments Alanine Aminotransferase (ALT/SGPT) (test code = 1742-6) 10 0-55 [facility] WorthTotal Uetvswa0433-89-76 07:27:00* Test Item Value Reference Range Interpretation Comments Total Protein (test code = 2885-2) 6.3 6.5-8.1 L [facility] WorthAlbumin2019-03-30 07:27:00* Test Item Value Reference Range Interpretation Comments Albumin (test code = 1751-7) 2.5 3.5-5.0 L [facility] WorthGlobulin2019-03-30 07:27:00* Test Item Value Reference Range Interpretation Comments Globulin (test code = 49102-2) 3.8 2.3-3.5 H [facility] WorthAlbumin/Globulin Rvfic6994-75-02 07:27:00 * Test Item Value Reference Range Interpretation Comments Albumin/Globulin Ratio (test code = 1759-0) 0.7 0.8-2.0 L [facility] WorthAlkaline Gvxernfmxip6307-77-77 07:27:00* Test Item Value Reference Range Interpretation Comments Alkaline Phosphatase (test code = 6768-6) 46 40-150 [facility] WorthCT ABDOMEN/PELVIS P5507-03-57 17:09:[address] [address] Patient Name: SOUTH MONTGOMERY MR #: [id number] : 1965 Age/Sex: 52/M Req #: [id number] Adm Physician: Ordered by: BJ RODRIGUEZ MD Report #: [id number] Location: ER Room/Bed: Procedure: [id number] CT/CT ABDOMEN/PELVIS W Exam Date: Exam Time: REPORT STATUS: Signed CT Abdomen And Pelvis with Intravenous Contrast INDICATION: ORAL IV, RLQ ABD PAIN ? DIVERTICULITIS VS APPENDICITIS TECHNIQUE: Thin collimation axial images ob tained from the diaphragm to the level of the pubic symphysis following the un eventful administration of oral and 100 cc of low osmolar, nonionic intraveno us contrast. Dose reduction techniques used: Automated exposure control, ad justment of the mAs and/or kVp according to patient size, standardized low-dos e protocol, and/or iterative reconstruction technique. RADIATION DOSE: Total DLP: 909.72 mGy*cm Estimated effective dose: (DLP x 0.0 15 x size factor) mSv CTDIvol has been reviewed. It is below the limits s et by the Radiation Protocol Committee (RPC). COMPARISON: CT abdomen[facility]v [facility] at [facility]. ABDOMEN FINDINGS: Lung Bases: Subsegmental atelectasis in the right lower lobe has developed. Subsegmental atelectasis in the left lung base is similar. There is bilateral subpleural fat deposition. The heart is normal in size. Liver: Normal atten uation. No evidence for mass. Gallbladder: Present and appears normal. No biliary ductal dilatation. Pancreas: Mild fatty atrophy without mass or maria ines ana m dilatation. Spleen: Normal in size. No evidence of mass.. Adrenal Glands: No evidence for mass. Kidneys: Right: Normal enhancement. No soft tissue mass. No hydronephrosis. Left: Normal enhancement. No soft tissue mass. No hydronephrosis. Lymph Nodes: No enlarged abdominal or per iaortic lymph nodes. Aorta: Normal in diameter with scattered calcificati ons. The celiac artery and SMA are widely patent. PELVIS FINDINGS: Bowel: Stomach: Collapsed and contains enteric contrast. Small Bowel: Cont ains enteric contrast. Multiple loops of small bowel with mural thickening in the right hemiabdomen have developed. There is no dilatation. The affected sma ll bowel involves the distal ileum including the terminal ileum. No pneumatosi s. Large Bowel: There is a small amount [...] are no longer visualized. Appendix: Normal appendix. Bennett dder: Under distended but otherwise normal. Peritoneum/retroperitoneum: Th ere is edema throughout the leaves of the small bowel mesentery in the right h emiabdomen. No evidence of free air in the upper abdomen. Bones: Mild deg enerative changes of the spine. Soft tissues: Fat-containing bilateral ingu inal hernias, right larger than left. IMPRESSION: 1. New fluid col lection adjacent to the rectosigmoid colon is concerning for developing absces s. The pneumoperitoneum associated with the rectosigmoid colon is no longer vi sualized. An inflamed diverticulum is not identified. 2. New long segmen t diffuse mural thickening of the ileum, including the terminal ileum, with as sociated mesenteric edema. Findings are suggestive of infectious enteritis giv en its rapid development. There are no CT findings of ischemia which is also i ncluded in the differential. There is no evidence of bowel obstruction. 3 . Normal appendix. Signed by: Dr. Kenna Cevallos MD on 11/28/2018 5:26 P M Dictated By: KENNA CEVALLOS MD 25 Transcribed By: RITCHIE on 11/28/181725 COPY TO: BJ RODRIGUEZ MD Urine [id number] 17:00:00* Test Item Value Reference Range Interpretation Comments Urine Mucus (test code = 8247-9) MODERATE RARE H [facility] [id number] 17:00:00* Test Item Value Reference Range Interpretation Comments Urine Mucus (test code = 8247-9) MODERATE RARE H [facility] Kinase [id number] 15:28:00* Test Item Value Reference Range Interpretation Comments Creatine Kinase MB (test code = 45019-1) 0.60 0-5.0 [facility] WorthTroponin [id number] 15:28:00* Test Item Value Reference Range Interpretation Comments Troponin I (test code = GHQ7078) 0.003 0-0.300 [facility] [id number] 15:19:00* Test Item Value Reference Range Interpretation Comments Creatine Kinase (test code = 2157-6) 47 30-200 [facility] WorthLipase2019-03-29 15:19:00* Test Item Value Reference Range Interpretation Comments Lipase (test code = 3040-3) < 4 8-78 L [facility] WorthProthrombin [id number] 15:12:00* Test Item Value Reference Range Interpretation Comments Prothrombin Time (test code = 5902-2) 14.1 11.9-14.5 [facility] Worth[facility]thromb Time International Ratio 2018-11-28 15:12:00* Test Item Value Reference Range Interpretation Comments Prothromb Time International Ratio (test code = 6301-6) 1.04 Oral Anticoagulant Therapy INR Values:1. Low Intensity Therapy 1.5 - 2.02 . Moderate Intensity Therapy 2.0 - 3.03. High Intensity Therapy(1) 2.5 - 3. 54. High Intensity Therapy(2) 3.0 - 4.05. Panic Value INR > 5.0 [facility] Worth[facility] Partial Thromboplast Time 2018-11-28 15:12:00* Test Item Value Reference Range Interpretation Comments Activated Partial Thromboplast Time (test code = 92923-3) 34.2 23.8-35.5 [facility] Worth[facility]thrombin [id number] 15:12:00* Test Item Value Reference Range Interpretation Comments Prothrombin Time (test code = 5902-2) 14.1 11.9-14.5 [facility] Worth[facility] Time International Ratio 2018-11-28 15:12:00* Test Item Value Reference Range Interpretation Comments Prothromb Time International Ratio (test code = 6301-6) 1.04 Oral Anticoagulant Therapy INR Values:1. Low Intensity Therapy 1.5 - 2.02 . Moderate Intensity Therapy 2.0 - 3.03. High Intensity Therapy(1) 2.5 - 3. 54. High Intensity Therapy(2) 3.0 - 4.05. Panic Value INR > 5.0 [facility] Partial Thromboplast Time 2018-11-28 15:12:00* Test Item Value Reference Range Interpretation Comments Activated Partial Thromboplast Time (test code = 93341-9) 34.2 23.8-35.5 [facility] Worth[facility]INGLE (PORTABLE)2018-11-28 15:07:00 [facility] [address] [place] [address] Patient Name: SOUTH MONTGOMERY MR #: [id number] : 1965 Age/Sex: 52/M Req #: [id number] Adm Physician: Ordered by: BJ RODRIGUEZ MD Report #: [id number] Location: ER Room/Bed: Procedure: [id number] DX/CHEST SINGLE (PORTABLE) Exam Date: 11/28/18 Exam Time: 1440 REPORT STATUS: Signed EXAMINATION: CHEST SINGLE (PORTABLE) INDICATION: Abdominal pain. COMPARISON: None FINDINGS: TUBES and LINES: None. LUNGS: L ungs are well inflated. Lungs are clear. There is no evidence of pneumonia or pulmonary edema. PLEURA: No pleural effusion or pneumothorax. HEA RT AND MEDIASTINUM: The cardiomediastinal silhouette is unremarkable. BONES AND SOFT TISSUES: No acute osseous lesion. Soft tissues are unremarkab le. UPPER ABDOMEN: No free air under the diaphragm. IMPRESSION: No acute radiographic abnormality. Signed by: Dr. Kota Jackson MD on 019 3:09 PM Dictated By: KOTA JACKSON MD [id number] Transcribed By: RITCHIE on 11/28/18 9346 COPY TO: BJ RODRIGUEZ MD
[2020-02-03] MEDS ORDERED: PANTOPRAZOLE 40 MG 10ML VIAL IV STA (07:16)
[2020-02-03] MEDS ORDERED: KETOROLAC TROMETHAMINE 30 MG/ML VIAL IV STA (07:16)
[2020-02-03] MEDS ORDERED: ONDANSETRON HCL INJ 2MG/ML 2ML 2 MG/ML VIAL IV STA (07:16)
[2020-02-03] MEDS ORDERED: MORPHINE SULFATE INJ 4 MG/ML INJ 1ML IV STA (07:16)
[2020-02-03] MEDS ORDERED: SODIUM CHLORIDE 0.9% 1000ML 1,000 ML IV STA (07:16)
[2020-02-03 07:29] LABS: BASOPHILS # (AUTO) 0.1 (0.0-0.1); BASOPHILS % 0.6 % (0.0-1.0); EOSINOPHILS # (AUTO) 0.3 (0.0-0.4); EOSINOPHILS % 3.3 % (0.0-6.0); HEMATOCRIT 48.3 % (38.2-49.6); HEMOGLOBIN 15.6 g/dL (14.0-18.0); LYMPHOCYTES # (AUTO) 4.6 (1.0-3.2); MEAN CORPUSCULAR HEMOGLOBIN 28.6 pg (28-32); MEAN CORPUSCULAR HGB CONC 32.3 g/dL (31-35); MEAN CORPUSCULAR VOLUME 88.6 fL (81-99); MONOCYTES # (AUTO) 0.6 (0.2-0.8); MONOCYTES % 6.6 % (4.4-11.3); NEUTROPHILS % 35.3 % (38.7-80.0); PLATELET COUNT 273 x10e3/uL (140-360); RED BLOOD COUNT 5.45 x10e6/uL (4.3-5.7); RED CELL DISTRIBUTION WIDTH 12.7 % (11.7-14.4)
[2020-02-03 07:43] LABS: INR 0.89; PROTHROMBIN TIME 12.6 seconds (11.9-14.5)
[2020-02-03 07:44] LABS: PARTIAL THROMBOPLASTIN TIME 25.5 seconds (23.8-35.5)
[2020-02-03 07:52] LABS: ALBUMIN 3.7 g/dL (3.5-5.0); ALBUMIN/GLOBULIN RATIO 0.9 (0.8-2.0); ANION GAP 15.9 mmol/L (8-16); CALCIUM 9.3 mg/dL (8.4-10.2); CREATININE, SERUM 1.26 mg/dL (0.72-1.25); MAGNESIUM 2.1 MG/DL (1.3-2.1); POTASSIUM 3.9 mmol/L (3.5-5.1)
[2020-02-03 07:58] LABS: CREATINE KINASE MB 1.8 ng/mL (0-5.0)
--- NOTE | 2020-02-03 08:00 | Diagnostic Imaging Report ---
EXAMINATION: CHEST SINGLE (PORTABLE) COMPARISON: Chest x-ray 11/30/2018 INDICATION: Abdominal pain ^ABD PAIN ^[id number] ^0740 DISCUSSION: Frontal view of the chest obtained at 0740 hours. HEART AND MEDIASTINUM: The cardiomediastinal silhouette is unremarkable. LINES: None. LUNGS: The lungs are well inflated and clear. No pneumonia or pulmonary edema. PLEURA: No pleural effusion or pneumothorax. BONES AND SOFT TISSUES: Calcific tendinosis of the right shoulder. The soft tissues are normal. IMPRESSION: No acute cardiopulmonary process. Signed by: Dr. Doug Maravilla MD on 02/03/2020 7:56 AM
--- NOTE | 2020-02-03 08:02 | Diagnostic Imaging Report ---
EXAMINATION: CT of the abdomen and pelvis without contrast. TECHNIQUE: Spiral CT images of the abdomen and pelvis were performed from the lung bases to the lesser trochanters. No intravenous contrast was given per renal stone protocol. Coronal and sagittal reformatted images were obtained. COMPARISON: CT abdomen and pelvis with contrast 07/11/2019 CLINICAL HISTORY:Left flank pain DISCUSSION: ABSENCE OF INTRAVENOUS CONTRAST DECREASES SENSITIVITY FOR DETECTION OF FOCAL LESIONS AND VASCULAR PATHOLOGY. ABDOMEN/PELVIS: LOWER THORAX: Lung bases are unremarkable. No pleural effusion. HEPATOBILIARY:No focal hepatic lesions. No intrahepatic biliary ductal dilation. The gallbladder is unremarkable. SPLEEN: No splenomegaly or focal splenic lesion. PANCREAS: No focal masses or ductal dilatation. ADRENALS: No adrenal nodules. KIDNEYS/URETERS: 2-3 mm nonobstructing calculus in the lower pole of the right kidney. Punctate calculus in the distal left ureter (series 3 image 168) results in mild pelviectasis without overt hydronephrosis and subtle perinephric fat stranding. No renal mass lesion. PELVIC ORGANS/BLADDER: Urinary bladder is unremarkable. Coarse prostatic calcifications. PERITONEUM/RETROPERITONEUM: No ascites or pneumoperitoneum. LYMPH NODES: No pelvic sidewall, retroperitoneal, or mesenteric lymphadenopathy. VESSELS: Limited evaluation in the absence of intravenous contrast. The abdominal aorta is non-aneurysmal. GI TRACT: The large bowel is notable for multiple diverticula at highest concentration along the descending and sigmoid colon. No wall thickening or adjacent inflammatory change. The appendix is normal. Small sliding hiatal hernia. No small bowel dilatation to suggest obstruction. BONES AND SOFT TISSUES: Bilateral fat-containing inguinal hernias. Otherwise no focal soft tissue abnormalities. Nonaggressive appearing sclerotic focus in the left iliac wing is unchanged and likely represents a bone island. Mild degenerative disc changes of the lower lumbar spine. IMPRESSION: Punctate (1-2 mm) distal left ureteral calculus results in trace pelviectasis without overt hydronephrosis, and mild perinephric-periureteral inflammation. Additional nonobstructing right renal calculus. Large bowel diverticulosis without findings of diverticulitis. Signed by: Dr. Ruddy Greene M.D. on 02/03/2020 7:58 AM
[2020-02-03 08:06] LABS: BILIRUBIN,URINE NEGATIVE (NEGATIVE); CLARITY,URINE CLEAR (CLEAR); COLOR,URINE YELLOW (YELLOW); KETONES,URINE NEGATIVE (NEGATIVE); LEUKOCYTE ESTERASE ,URINE NEGATIVE (NEGATIVE); NITRITE,URINE NEGATIVE (NEGATIVE); PROTEIN,URINE DIPSTICK NEGATIVE (NEGATIVE); URINE UROBILINOGEN 0.2 mg/dL (0.2 - 1)
[2020-02-03 08:12] LABS: BACTERIA,URINE FEW /HPF; EPITHELIAL CELLS,URINE RARE /LPF; WBC,URINE (MAN) 0-5 /HPF (0-5)
--- NOTE | 2020-02-03 08:22 | Emergency Department Note ---
History of Present Illnes History of Present Illness Chief Complaint: Flank Pain History of Present Illness This is a 54 year old male 54 Y/O MALE PT A&OX3 PRESENTS TO THE ER C/O LT SIDED FLANK PAIN RADIATING TO LLQ ABD ONSET THIA AM AROUND 0600; PT ALSO REPORTS NAUSEA AND CHILLS; HX OF DIVERTICULITIS; PT DENIES CP OR SOB; PT APPEARS IN OBVIOUS PAIN; PT DENIES FEVER OR DIARRHEA; LAST BM THIS AM; DENIES ANY ABNORMALITIES; DENIES HEMATURIA, DYURIA OR BURNING WITH URINATION; 18G IV CATH PLACED IN LT AC; BLOOD OBTAINED FOR ANALYSIS. Historian: Patient Arrival Mode: Car Correctional Case Records Supervisor Required: No Onset (how long ago): hour(s) Location: LEFT FLANK TO LLQ/GROIN Quality: PAIN Radiation: abdomen (LEFT GROIN) Severity: severe Onset quality: sudden Duration (how long): hour(s) Timing of current episode: constant Progression: waxing and waning Chronicity: new Context: recent illness Relieving factors: none Exacerbating factors: none Associated symptoms: other (NAUSEA, NO VOMITING) Treatments prior to arrival: none Past Medical/Family History Physician Review I have reviewed the patient's past medical and family history. Any updates have been documented here. Past Medical History Recent Fever: No Clinical Suspicion of Infectio: No New/Unexplained Change in Ment: No Past Medical History: Hepatitis C, GERD, Hyperlipedemia Other Medical History: DIVERTICULITIS Past Surgical History: Knee Replacement Other Surgery: ABSCESS IN COLON WITH PERFORATION SX RIGHT KNEE REPAIR (ACL) Social History Smoking Cessation: Unknown if ever smoked Counseling Performed: No Alcohol Use: Occasional Any Illegal Drug Use: No TB Exposure/Symptoms: No Physically hurt or threatened: No Family History Family history of heart diseas: No Other Last Tetanus: ood Any Pre-Existing Lines (PICC,: No Review of Systems Review of Systems Constitutional: no symptoms EENTM: no symptoms Cardiovascular: no symptoms Respiratory: no symptoms Gastrointestinal: as per HPI, abdominal pain Genitourinary: no symptoms Musculoskeletal: no symptoms Neurological: no symptoms Psychological: no symptoms Endocrine: no symptoms Hematological/Lymphatic: no symptoms Review of other systems All other systems reviewed and negative. Physical Exam Related Data Allergies: Coded Allergies: No Known Allergies (Unverified , 07/11/19) Triage Vital Signs Vital Signs Date Time Temp Pulse Resp B/P (MAP) Pulse Ox O2 Delivery O2 Flow Rate FiO2 02/03/20 06:47 97.4 80 20 146/93 96 Physical Exam CONSTITUTIONAL Constitutional: well-developed, well-nourished, other (APPEARS IN PAIN) HENT HENT: normocephalic, atraumatic, oropharynx clear/moist, nose normal HENT L/R: left ext ear normal, right ext ear normal EYES Eyes: PERRL, conjunctivae normal NECK Neck: ROM normal PULMONARY Pulmonary: effort normal, breath sounds normal CARDIOVASCULAR Cardiovascular: regular rhythm, heart sounds normal, capillary refill normal, normal rate GASTROINTESTINAL Abdominal: soft, nontender, bowel sounds normal; left CVA tenderness, right CVA tenderness GENITOURINARY Genitourinary: exam deferred SKIN Skin: warm, dry MUSCULOSKELETAL Musculoskeletal: ROM normal NEUROLOGICAL Neurological: alert, oriented x 3, no gross motor or sensory deficits PSYCHOLOGICAL Psychological: mood/affect normal, judgement normal Results Laboratory Result Diagram: 02/03/20 0654 02/03/20 0654 Laboratory Laboratory Tests Test 02/03/20 07:16 02/03/20 06:54 02/03/20 06:45 Prothrombin Time 12.6 seconds (11.9-14.5) Prothromb Time International Ratio 0.89 Activated Partial Thromboplast Time 25.5 seconds (23.8-35.5) White Blood Count 8.54 x10e3/uL (4.8-10.8) Red Blood Count 5.45 x10e6/uL (4.3-5.7) Hemoglobin 15.6 g/dL (14.0-18.0) Hematocrit 48.3 % (38.2-49.6) Mean Corpuscular Volume 88.6 fL (81-99) Mean Corpuscular Hemoglobin 28.6 pg (28-32) Mean Corpuscular Hemoglobin Concent 32.3 g/dL (31-35) Red Cell Distribution Width 12.7 % (11.7-14.4) Platelet Count 273 x10e3/uL (140-360) Neutrophils (%) (Auto) 35.3 % (38.7-80.0) Lymphocytes (%) (Auto) 54.0 % (18.0-39.1) Monocytes (%) (Auto) 6.6 % (4.4-11.3) Eosinophils (%) (Auto) 3.3 % (0.0-6.0) Basophils (%) (Auto) 0.6 % (0.0-1.0) Neutrophils # (Auto) 3.0 (2.1-6.9) Lymphocytes # (Auto) 4.6 (1.0-3.2) Monocytes # (Auto) 0.6 (0.2-0.8) Eosinophils # (Auto) 0.3 (0.0-0.4) Basophils # (Auto) 0.1 (0.0-0.1) Absolute Immature Granulocyte (auto 0.02 x10e3/uL (0-0.1) Sodium Level 141 mmol/L (136-145) Potassium Level 3.9 mmol/L (3.5-5.1) Chloride Level 106 mmol/L (98-107) Carbon Dioxide Level 23 mmol/L (22-29) Anion Gap 15.9 mmol/L (8-16) Blood Urea Nitrogen 16 mg/dL (7-26) Creatinine 1.26 mg/dL (0.72-1.25) Estimat Glomerular Filtration Rate 60 ML/MIN (60-) BUN/Creatinine Ratio 13 (6-25) Glucose Level 128 mg/dL (74-118) Calcium Level 9.3 mg/dL (8.4-10.2) Magnesium Level 2.1 MG/DL (1.3-2.1) Total Bilirubin 0.6 mg/dL (0.2-1.2) Aspartate Amino Transf (AST/SGOT) 24 IU/L (5-34) Alanine Aminotransferase (ALT/SGPT) 20 IU/L (0-55) Alkaline Phosphatase 74 IU/L (40-150) Creatine Kinase 161 IU/L (30-200) Creatine Kinase MB 1.80 ng/mL (0-5.0) Troponin I 0.007 ng/mL (0-0.300) Total Protein 7.7 g/dL (6.5-8.1) Albumin 3.7 g/dL (3.5-5.0) Globulin 4.0 g/dL (2.3-3.5) Albumin/Globulin Ratio 0.9 (0.8-2.0) Urine Color Yellow (YELLOW) Urine Clarity Clear (CLEAR) Urine pH 6 (5 - 7) Urine Specific [place] >=1.030 (1.010-1.025) Urine Protein Negative (NEGATIVE) Urine Glucose (UA) Negative (NEGATIVE) Urine Ketones Negative (NEGATIVE) Urine Blood Negative (NEGATIVE) Urine Nitrite Negative (NEGATIVE) Urine Bilirubin Negative (NEGATIVE) Urine Urobilinogen 0.2 mg/dL (0.2 - 1) Urine Leukocyte Esterase Negative (NEGATIVE) Urine RBC 11-20 /HPF (0-5) Urine WBC 0-5 /HPF (0-5) Urine Epithelial Cells Rare /LPF (NONE) Urine Bacteria Few /HPF (NONE) Lab results reviewed: Yes Imaging Imaging results reviewed: Yes Impressions EXAMINATION: CHEST SINGLE (PORTABLE) COMPARISON: Chest x-ray 11/30/2018 INDICATION: Abdominal pain ^ABD PAIN ^[id number] ^0740 DISCUSSION: Frontal view of the chest obtained at 0740 hours. HEART AND MEDIASTINUM: The cardiomediastinal silhouette is unremarkable. LINES: None. LUNGS: The lungs are well inflated and clear. No pneumonia or pulmonary edema. PLEURA: No pleural effusion or pneumothorax. BONES AND SOFT TISSUES: Calcific tendinosis of the right shoulder. The soft tissues are normal. IMPRESSION: No acute cardiopulmonary process. Signed by: Dr. Doug Maravilla MD on 02/03/2020 7:56 AM EXAMINATION: CT of the abdomen and pelvis without contrast. TECHNIQUE: Spiral CT images of the abdomen and pelvis were performed from the lung bases to the lesser trochanters. No intravenous contrast was given per renal stone protocol. Coronal and sagittal reformatted images were obtained. COMPARISON: CT abdomen and pelvis with contrast 07/11/2019 CLINICAL HISTORY:Left flank pain DISCUSSION: ABSENCE OF INTRAVENOUS CONTRAST DECREASES SENSITIVITY FOR DETECTION OF FOCAL LESIONS AND VASCULAR PATHOLOGY. ABDOMEN/PELVIS: LOWER THORAX: Lung bases are unremarkable. No pleural effusion. HEPATOBILIARY:No focal hepatic lesions. No intrahepatic biliary ductal dilation. The gallbladder is unremarkable. SPLEEN: No splenomegaly or focal splenic lesion. PANCREAS: No focal masses or ductal dilatation. ADRENALS: No adrenal nodules. KIDNEYS/URETERS: 2-3 mm nonobstructing calculus in the lower pole of the right kidney. Punctate calculus in the distal left ureter (series 3 image 168) results in mild pelviectasis without overt hydronephrosis and subtle perinephric fat stranding. No renal mass lesion. PELVIC ORGANS/BLADDER: Urinary bladder is unremarkable. Coarse prostatic calcifications. PERITONEUM/RETROPERITONEUM: No ascites or pneumoperitoneum. LYMPH NODES: No pelvic sidewall, retroperitoneal, or mesenteric lymphadenopathy. VESSELS: Limited evaluation in the absence of intravenous contrast. The abdominal aorta is non-aneurysmal. GI TRACT: The large bowel is notable for multiple diverticula at highest concentration along the descending and sigmoid colon. No wall thickening or adjacent inflammatory change. The appendix is normal. Small sliding hiatal hernia. No small bowel dilatation to suggest obstruction. BONES AND SOFT TISSUES: Bilateral fat-containing inguinal hernias. Otherwise no focal soft tissue abnormalities. Nonaggressive appearing sclerotic focus in the left iliac wing is unchanged and likely represents a bone island. Mild degenerative disc changes of the lower lumbar spine. IMPRESSION: Punctate (1-2 mm) distal left ureteral calculus results in trace pelviectasis without overt hydronephrosis, and mild perinephric-periureteral inflammation. Additional nonobstructing right renal calculus. Large bowel diverticulosis without findings of diverticulitis. Signed by: Dr. Ruddy Greene M.D. on 02/03/2020 7:58 AM Diagnostics Tests Diagnostic test(s) reviewed: Yes Critical Care Time Subsequent provider I assumed direction of critical care for this patient from another provider of my specialty. Assessment & Plan Reassessment Reassessment LEFT SIDED ABD FLANK PAIN, H/O DIVERTICULITIS BUT NO TENDERNESS ON EXAM - CBC, CHEM'S, UA/CX, CT ABD/PELVIS - R/O URETEROLITHIASIS, UTI/PYELO, DIVERTICULITIS, PERFORATION/ABSCESS Assessment & Plan Final Impression: (1) CALCULUS OF KIDNEY WITH CALCULUS OF URETER Assessment & Plan DC HOME, STRAIN ALL URINE, FLOMAX, TYL #3, TORADOL, F/U SCHATTE & PCP, RTED PRN Depart Disposition: HOME, SELF-CARE Last Vital Signs Date Time Temp Pulse Resp B/P (MAP) Pulse Ox O2 Delivery O2 Flow Rate FiO2 02/03/20 06:47 97.4 80 20 146/93 96 Home Meds Active Scripts Acetaminophen With Codeine (TYLENOL WITH CODEINE #3 TABLET) 1 Each Tablet, 300 MG PO Q8H PRN for ABDOMINAL PAIN, #10 TAB Prov:KATHRYN TOTH NP 07/13/19 Ondansetron Hcl* (ZOFRAN*) 4 Mg Tablet, 4 MG PO Q8HR PRN for NAUSEA, #10 Prov:NAVNEETASAELKATHRYN M TRANSPORTATION MECHANIC 07/13/19 Pantoprazole Sodium* (PROTONIX) 40 Mg Tablet.dr, 40 MG PO DAILY@0600, #30 TAB Prov:KATHRYN TOTH Carmen TRANSPORTATION MECHANIC 07/13/19 Reported Medications Ibuprofen (IBUPROFEN) 400 Mg Tablet, 800 MG PO PRN, TAB 06/24/19 Atorvastatin Calcium (ATORVASTATIN CALCIUM) 10 Mg Tablet, 10 MG PO MORNING, #30 TAB 11/28/18 Medications in the ED Pantoprazole Sodium 40 mg ONCE STAT IV Last administered on 02/03/20at 07:57; Admin Dose 40 MG; Start 02/03/20 at 07:16; Stop 02/03/20 at 07:32; Status DC Morphine Sulfate 4 mg ONCE STAT IV Last administered on 02/03/20at 07:57; Admin Dose 4 MG; Start 02/03/20 at 07:16; Stop 02/03/20 at 07:32; Status DC Ondansetron HCl 4 mg ONCE STAT IV Last administered on 02/03/20at 07:58; Admin Dose 4 MG; Start 02/03/20 at 07:16; Stop 02/03/20 at 07:32; Status DC Ketorolac Tromethamine 30 mg ONCE STAT IV Last administered on 02/03/20at 07:58; Admin Dose 30 MG; Start 02/03/20 at 07:16; Stop 02/03/20 at 07:31; Status DC Sodium Chloride 1,000 ml @ 0 mls/hr Q0M STAT IV Last administered on 02/03/20at 07:58; Admin Dose 1,000 MLS/HR; Start 02/03/20 at 07:16; Stop 02/03/20 at 07:22; Status DC BJ RODRIGUEZ MD Feb 03, 2020 08:22
--- NOTE | 2020-02-03 08:55 | NUR ---
teaching done, verbal ack. by pt. ambulatory. rx, d/c papers, lab and ct copies, strainers and cup all given.
== END 2020-02-03 09:00 | disposition home or self-care (01) ==
LOC: ER 06:41
DX: R10.32 Left lower quadrant pain (principal); M54.5 Low back pain; R11.0 Nausea; N20.2 Calculus of kidney with calculus of ureter; E78.5 Hyperlipidemia, unspecified; B19.20 Unspecified viral hepatitis C without hepatic coma; K21.9 Gastro-esophageal reflux disease without esophagitis; Z87.19 Personal history of other diseases of the digestive system
CPT/HCPCS: 36415; 71045; 74176; 80053; 81001; 82550; 82553; 83735; 84484; 85025; 85610; 85730; 87086; 99284; C9113; J1885; J2270; J2405; J7030